=== PATIENT | female | born 2005 | race Caucasian/White ===

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

== ENCOUNTER 2023-02-26 09:51 | Outpatient (AMB) | payer OTHER, SELFPAY ==
--- NOTE | 2023-02-26 09:52 | A.OFFPC_ITS ---
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 Accompanied by: Self / Same As Patient Allergies Seasonal Allergies Allergy (Intermediate, Verified 02/26/23 10:07) Stuffy Nose Medication List - Last Reconciled 02/26/23 by Regina Gray CNP cholecalciferol (vitamin D3) 25 mcg PO DAILY 90 days drospirenone-ethinyl estradiol 3-0.03 mg (Kacey (28)) 1 tab PO DAILY hydroxyzine HCl 25 mg PO TID PRN 30 days Tobacco use date assessed: 09/18/22 Dental Screening Dental Screen Date: 02/26/23 Did you have a dental visit in the last 12 months?: Yes Did you have a dental problem in the last 6 months where you did not have access to dental care?: No Was dental information given to patient?: Patient has dentist HPI HPI Comments History of Present Illness Details 18 y/o female presents for anxiety and depression follow up. Hydroxyzine was started in December. She states she has been taking the medication once daily with significant improvement. She notes that she feels happier, however, she feels tired and sleeping on the medication. No acute symptoms today. [facility] Medical History Acne Depression Vitamin D deficiency Surgical History No pertinent past surgical history Family History Maternal Grandfather Bone cancer Lung cancer Maternal Grandmother Breast cancer Social History Household Members: Family Housing: House Housing Other:: multifamily Alcohol intake: never Patient Tobacco Use Status: Never used Tobacco e-Cigarette/Vaping Use: Never Used service: No Current occupational status: student Current occupational exposures/hazards: No Cognitive needs: No Hearing needs: No Vision needs: No Female Reproductive History Menstrual Age of Menarche: 15 Questionnaire PHQ-9 Over the last 2 weeks, how often have you been bothered by any of the following problems? 1. Little interest or pleasure in doing things: several days 2. Feeling down, depressed, or hopeless: not at all 3. Trouble falling or staying asleep, or sleeping too much: nearly every day 4. Feeling tired or having little energy: several days 5. Poor appetite or overeating: several days 6. Feeling bad about yourself - or that you are a failure or have let yourself or your family down: not at all 7. Trouble concentrating on things, such as reading the newspaper or watching television: nearly every day 8. Moving or speaking so slowly that other people could have noticed. Or the opposite - being so fidgety or restless that you have been moving around a lot more than usual: several days 9. Thoughts that you would be better off or of hurting yourself in some way: not at all Total score: 10 Depression Screening Interpretation: Positive Depression Screening Follow-up: Existing condition and In treatment 11675 - PHQ-9 Billing: Yes Source: Developed by Drs. Bravo White, Gloria Pringle, Panfilo Velásquez and colleagues, with an educational tony from [employer]. Thrive Questionnaire Date Thrive assessed: 09/18/22 LIZ-7 AMB Questionnaire LIZ-7 Date LIZ - 7 assessed: 02/26/23 Feeling nervous, anxious, or on edge: 3 = Nearly every day Not being able to stop or control worryin = Several days Worrying too much about different things: 3 = Nearly every day Trouble relaxin = Several days Being so restless that it is hard to sit still: 1 = Several days Becoming easily annoyed or irritable: 1 = Several days Feeling afraid as if something awful might happen: 2 = More than half the days Total LIZ-7 score (0-4 normal; 5-9 mild; 10-14 moderate; 15-21 severe): 12 Source: Developed by Drs. Bravo White, Gloria Pringle, Panfilo Velásquez and colleagues, with an educational tony from [employer]. LIZ-7 Assessment Billing LIZ-7 Assessment Tool: LIZ-7 Assessment 46349 Review of Systems Const Details: Const Denies chills, Denies fatigue, Denies fever(s), Denies headache(s) and Denies weakness ENT Denies dizziness and Denies headache(s) Card Denies chest pain, Denies lightheadedness, Denies dyspnea and Denies other (Palpitations) Resp Denies cough, Denies dyspnea, Denies wheezing and Denies other ( shortness of breath) GI Denies abdominal pain, Denies melena, Denies hematochezia, Denies change in bowel habits, Denies dyspepsia and Denies nausea Denies hematuria and Denies dysuria Musc Denies abnormal gait, Denies myalgias, Denies arthralgias, Denies numbness and Denies tingling Skin/Breast Denies rash, Denies unusual bruising and Denies wounds Neuro Denies abnormal gait, Denies dizziness, Denies headache(s), Denies memory loss, Denies numbness, Denies Sensory deficit (Neuro), Denies tingling and Denies weakness Psych Denies anxiety and Denies depression Endo Denies fatigue Aller/Immun Denies wheezing Physical exam (Primary Care) Vital Signs: Last Vital Signs Pulse 66 02/26/23 09:53 BP 110/64 02/26/23 09:53 Pulse Ox 99 02/26/23 09:53 BMI result Body Mass Index 17.6 Tobacco/Smoking Status: Tobacco use Status Tobacco use date assessed 09/18/22 02/26/23 10:00 Patient Tobacco Use Status Never used Tobacco 02/26/23 10:00 e-Cigarette/Vaping Use Never Used 02/26/23 10:00 PHQ-9: PHQ-9 Score PHQ-9: Total score 10 02/26/23 10:00 Depression Screening Interpretation: Positive Depression Screening Follow-up: Existing condition and In treatment Thrive Assessment: Date of Thrive Assessment Date Thrive assessed 09/18/22 02/26/23 10:00 Const Other: General: no acute distress and well developed Nutritional Appearance: well nourished Orientation/consciousness: patient oriented x3 HENMT Head: Yes normocephalic and Yes atraumatic Eyes General: appearance normal, both eyes and all related structures Pupils: Equal, round and reactive pupils present EOM: EOMs intact bilaterally Resp Effort & Inspection: normal respiratory effort Auscultation: clear to auscultation bilaterally Cardio Rate: regular rate Rhythm: regular rhythm Heart sounds: S1 normal heart sound present, S2 normal heart sound present, no gallops, no murmurs and no rubs GI Palpation (GI): No Abdominal aortic bruit present, Soft to palpation, nontender, No hepatosplenomegaly present and No Rebound tenderness present Auscultation: normal bowel sounds General: Yes no CVA tenderness Back/Spine/Pelvis Back: no CVA tenderness Cervical Spine: cervical ROM normal and No Cervical spine tenderness Thoracic/Lumbar Spine: thoraco-lumbar ROM normal, No pain with thoraco-lumbar ROM, No thoracic spinal tenderness and No lumbar spinal tenderness Extrem General: Yes normal to inspection, No edema and No calf tenderness Skin General: warm and dry. Normal skin color. Normal skin turgor Lesions: no lesions Rashes: no rashes Trauma: no lacerations or abrasions Wounds: no wounds Nails: normal Neuro General: patient oriented x3, gait normal and no focal neuro deficit Cranial nerves: Yes Equal, round and reactive pupils present Cognition (Neuro): normal cognition Gait exam (Neuro): Normal gait present Sensory Exam: No Sensory deficit (Neuro) Psych Appearance: grossly normal Affect: normal affect Attitude: cooperative Thought process: Normal thought process present Assessment and Plan Assessment & Plan (1) Anxiety: Code(s): F41.9 - Anxiety disorder, unspecified Plan: LIZ-7 an PHQ-9 scores revealed moderate anxiety and depression Sertraline ordered. Take as prescribed Informed that drowsiness is a common side effect of hydroxyzine; continue to take as needed for anxiety Routine exercise encouraged Follow-up in 1 month or return sooner with worsening or new symptoms Verbalized understanding and agreed with treatment plan. (2) Depression: Code(s): F32.A - Depression, unspecified Plan: As above Medications: New sertraline 25 mg PO DAILY 90 tabs 1RF 90 days Coding Level of Care Code Est Pt Level 3 (87985) Diagnoses Anxiety F41.9 Depression F32.A Additional Codes LIZ-7 Assessment Billing - LIZ-7 Assessment Tool: LIZ-7 Assessment 33136 ([id number]) Time Spent (min) 25
[2023-02-26 09:53] VITALS: BP 110/64; PULSE 66; O2SAT 99; BMI 17.6
== END 2023-02-26 10:22 | disposition home or self-care (01) ==
PROVIDERS: PCP Nurse Practitioner Family; Visit Provider Nurse Practitioner Family
DX: F41.9 Anxiety disorder, unspecified (principal); F32.A Depression, unspecified
CPT/HCPCS: 99213

== ENCOUNTER 2023-03-16 13:43 | Outpatient (AMB) | payer OTHER, SELFPAY ==
[2023-03-16 13:45] VITALS: BP 89/60; PULSE 70; TEMP 36.5; O2SAT 99; BMI 17.7
--- NOTE | 2023-03-16 13:45 | MHC.OFFWIV ---
Intake Vital Signs 03/16/23 13:45 Height 5 ft 6 in Weight 109 lb 6 oz BMI 17.7 BP 89/60 L Blood Pressure Location Lt brachial Position Sitting Pulse 70 Pulse Source Pulse Oximeter Temp 97.7 F Temp Source Temporal Artery Scan Pulse Oximetry (%) 99 Oxygen Delivery Method Room Air Intake Visit Reasons: EP, Back pain Intake Note: Pt is here c/o lower back pain that has been radiating upwards. Pt states no falls or injuries but she does play soccer. Patient Tobacco Use Status: Never used Tobacco Allergies Seasonal Allergies Allergy (Intermediate, Verified 03/16/23 13:46) Stuffy Nose Do you need a note to return to daycare/school/sports/work: No HPI EP, Back pain HPI Details 18 year old female patient presents today with lower back pain and spasms. 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 She denies any inciting event, fall, or injury to this pain. She reports playing in a summer soccer league without any pain/injury. She reports she can actually see and feel her back muscles spasming at times. The athletic trainers at her college have been applying heat/ice and electric stim. She has also been taking advil without relief. She reports some radiation of pain down buttocks. Denies leg weakness or numbness. Denies saddle anesthesia or bowel/bladder dysfunction. [facility] Medical History Acne Depression Vitamin D deficiency Surgical History No pertinent past surgical history Family History Maternal Grandfather Bone cancer Lung cancer Maternal Grandmother Breast cancer Social History Household Members: Family Housing: House Housing Other:: multifamily Alcohol intake: never Patient Tobacco Use Status: Never used Tobacco e-Cigarette/Vaping Use: Never Used service: No Current occupational status: student Current occupational exposures/hazards: No Cognitive needs: No Hearing needs: No Vision needs: No Female Reproductive History Menstrual Age of Menarche: 15 Review of Systems Const All systems reviewed & are unremarkable except as noted in HPI and below Physical Exam Vital Signs: Last Vital Signs Temp 97.7 F 03/16/23 13:45 Pulse 70 03/16/23 13:45 BP 89/60 L 03/16/23 13:45 Pulse Ox 99 03/16/23 13:45 Oxygen Delivery Method Room Air 03/16/23 13:45 BMI result Body Mass Index 17.7 Const General: cooperative, healthy appearing, comfortable and no acute distress Nutritional Appearance: average body habitus and well nourished Resp Effort & Inspection: normal respiratory effort and able to speak in complete sentences General: Yes no CVA tenderness Back/Spine/Pelvis Back: no CVA tenderness Cervical Spine: normal cervical lordosis and cervical ROM normal Thoracic/Lumbar Spine: paraspinal muscle tenderness bilaterally in the lower thoracic, in the upper lumbar, in the mid lumbar and in the lower lumbar, thoraco-lumbar spasm bilaterally in the lower thoracic, in the upper lumbar, in the mid lumbar and in the lower lumbar and straight leg raise positive bilateral at 50 degrees Skin General skin exam: no rashes or lesions noted Neuro General: gait normal, Normal light touch and pain sensation and deep tendon reflexes 2+ bilaterally Extrem General: Yes capillary refill normal and Yes no clubbing, cyanosis or edema Psych Appearance: grossly normal Mental Status: mental status grossly normal Speech and movement: Normal speech and movement present Assessment & Plan Assessment & Plan (1) Lower back pain: Code(s): M54.50 - Low back pain, unspecified Qualifiers: Chronicity: acute Back pain laterality: bilateral Sciatica presence: without sciatica Qualified Code(s): M54.50 - Low back pain, unspecified Plan: Her pain is likely muscular in nature. Her bilateral lower thoracic and lumbar paraspinal musculature bilaterally are very tender, with notable muscle spasms on exam. XR reviewed in the office does not reveal any acute findings. Will await official radiology read. She can continue to utilize electric stim with athletic trainers at her college, in addition to heat/ice application and gentle stretching/foam rolling regimen. She does not wish to try muscle relaxers. She is agreeable to trying short course of meloxicam to see if this provides any benefit. We reviewed indications, use, possible side effects. I advised she hold off returning to pre season soccer practice for the next couple of days, which she agrees to. if her pain it is/ spasms do not resolve with conservative measures, NSAIDs, and increased rest time, she should return to the clinic for further evaluation, or follow-up with PCP. She verbalizes understanding and agrees to plan. (2) Strain of lumbar paraspinous muscle: Code(s): S39.012A - Strain of muscle, fascia and tendon of lower back, initial encounter Qualifiers: Encounter type: initial encounter Qualified Code(s): S39.012A - Strain of muscle, fascia and tendon of lower back, initial encounter Orders: Orders XR lumbar spine 2-3V Today M54.50 - Low back pain, unspecified, S39.012A - Strain of muscle, fascia and tendon of lower back, initial encounter Medications: New meloxicam 7.5 mg PO DAILY 7 tabs 0RF 7 days M54.50 - Low back pain, unspecified, S39.012A - Strain of muscle, fascia and tendon of lower back, initial encounter Coding Level of Care Code Est Pt Level 3 (81837) Diagnoses Lower back pain M54.50 Chronicity: acute Back pain laterality: bilateral Sciatica presence: without sciatica Strain of lumbar paraspinous muscle S39.012A Encounter type: initial encounter
== END 2023-03-16 15:02 | disposition home or self-care (01) ==
PROVIDERS: PCP Nurse Practitioner Family; Visit Provider Nurse Practitioner Family
DX: M54.50 Low back pain, unspecified (principal); S39.012A Strain of muscle, fascia and tendon of lower back, initial encounter
CPT/HCPCS: 99213

== ENCOUNTER 2023-03-16 14:34 | Outpatient (REF) | payer OTHER, SELFPAY ==
--- NOTE | ~2023-03-16 | XR_ITS ---
EXAMINATION: XR LUMBOSACRAL SPINE CLINICAL INFORMATION: Low back pain. COMPARISON: None available. TECHNIQUE: Three views of the lumbosacral spine. FINDINGS: The vertebral bodies and posterior elements are normal. The disc spaces are preserved and the vertebral alignment is normal. The paraspinal soft tissues are normal. XR/XR lumbar spine 2-3V IMPRESSION: Unremarkable lumbar spine.
== END 2023-03-16 14:35 | disposition home or self-care (01) ==
LOC: HO.HMGCX 14:34
PROVIDERS: PCP Nurse Practitioner Family; Visit Provider Nurse Practitioner Family
DX: S39.012A Strain of muscle, fascia and tendon of lower back, initial encounter (principal)
CPT/HCPCS: 72100

== ENCOUNTER 2023-04-02 09:51 | Outpatient (AMB) | payer OTHER, SELFPAY ==
--- NOTE | 2023-04-02 10:04 | A.OFFPC_ITS ---
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 Accompanied by: Self / Same As Patient Allergies Seasonal Allergies Allergy (Intermediate, Verified 04/02/23 10:39) Stuffy Nose Medication List - Last Reconciled 04/02/23 by Regina Gray CNP cholecalciferol (vitamin D3) 25 mcg PO DAILY 90 days drospirenone-ethinyl estradiol 3-0.03 mg (Kacey (28)) 1 tab PO DAILY hydroxyzine HCl 25 mg PO TID PRN 30 days sertraline 25 mg PO DAILY 90 days Tobacco use date assessed: 09/18/22 Dental Screening Dental Screen Date: 04/02/23 Did you have a dental visit in the last 12 months?: Yes Did you have a dental problem in the last 6 months where you did not have access to dental care?: No Was dental information given to patient?: Patient has dentist HPI HPI Comments History of Present Illness Details 18-year-old female presents for anxiety and depression follow-up. She is currently on hydroxyzine and sertraline. Sertraline was started at her last visit last month. She notes she has been taking her medications as prescribed with controlled symptoms and she has not been feeling as tired lately. She notes she wish to stay on her current doses of medications. She notes she started behavioral therapy 2 weeks ago and has been go once a twice a week. She reports significant improvement with therapy. She is a college student. [facility] Medical History Vitamin D deficiency Depression Acne Surgical History No pertinent past surgical history Family History Maternal Grandfather Bone cancer Lung cancer Maternal Grandmother Breast cancer Social History Household Members: Family Housing: House Housing Other:: multifamily Alcohol intake: never Patient Tobacco Use Status: Never used Tobacco e-Cigarette/Vaping Use: Never Used service: No Current occupational status: student Current occupational exposures/hazards: No Cognitive needs: No Hearing needs: No Vision needs: No Female Reproductive History Menstrual Age of Menarche: 15 Questionnaire PHQ-9 Over the last 2 weeks, how often have you been bothered by any of the following problems? 1. Little interest or pleasure in doing things: several days 2. Feeling down, depressed, or hopeless: more than half the days 3. Trouble falling or staying asleep, or sleeping too much: more than half the days 4. Feeling tired or having little energy: several days 5. Poor appetite or overeating: not at all 6. Feeling bad about yourself - or that you are a failure or have let yourself or your family down: more than half the days 7. Trouble concentrating on things, such as reading the newspaper or watching television: more than half the days 8. Moving or speaking so slowly that other people could have noticed. Or the opposite - being so fidgety or restless that you have been moving around a lot more than usual: several days 9. Thoughts that you would be better off or of hurting yourself in some way: not at all Total score: 11 Depression Screening Interpretation: Positive Depression Screening Follow-up: Existing condition and In treatment Source: Developed by Drs. Bravo White, Gloria Pringle, Panfilo Velásquez and colleagues, with an educational tony from [employer]. Thrive Questionnaire Date Thrive assessed: 09/18/22 LIZ-7 AMB Questionnaire LIZ-7 Date LIZ - 7 assessed: 04/02/23 Feeling nervous, anxious, or on edge: 3 = Nearly every day Not being able to stop or control worryin = Nearly every day Worrying too much about different things: 3 = Nearly every day Trouble relaxin = More than half the days Being so restless that it is hard to sit still: 1 = Several days Becoming easily annoyed or irritable: 0 = Not at all Feeling afraid as if something awful might happen: 3 = Nearly every day Total LIZ-7 score (0-4 normal; 5-9 mild; 10-14 moderate; 15-21 severe): 15 Source: Developed by Drs. Bravo White, Gloria Pringle, Panfilo Velásquez and colleagues, with an educational tony from [employer]. Review of Systems Const Details: Const Denies chills, Denies fatigue, Denies fever(s), Denies headache(s) and Denies weakness ENT Denies dizziness and Denies headache(s) Card Denies chest pain, Denies lightheadedness, Denies dyspnea and Denies other (Palpitations) Resp Denies cough, Denies dyspnea, Denies wheezing and Denies other ( shortness of breath) GI Denies abdominal pain, Denies melena, Denies hematochezia, Denies change in bowel habits, Denies dyspepsia and Denies nausea Denies hematuria and Denies dysuria Musc Denies abnormal gait, Denies myalgias, Denies arthralgias, Denies numbness and Denies tingling Skin/Breast Denies rash, Denies unusual bruising and Denies wounds Neuro Denies abnormal gait, Denies dizziness, Denies headache(s), Denies memory loss, Denies numbness, Denies Sensory deficit (Neuro), Denies tingling and Denies weakness Psych Denies anxiety, Denies depression, Denies memory loss Endo Denies cold intolerance, Denies fatigue, Denies heat intolerance, Denies polydipsia and Denies polyuria Aller/Immun Denies wheezing Physical exam (Primary Care) Vital Signs: Last Vital Signs Temp 97.4 F 04/02/23 10:06 Pulse 73 04/02/23 10:06 Resp 12 04/02/23 10:06 BP 106/64 04/02/23 10:06 Pulse Ox 99 04/02/23 10:06 Oxygen Delivery Method Room Air 04/02/23 10:06 BMI result Body Mass Index 17.3 Tobacco/Smoking Status: Tobacco use Status Tobacco use date assessed 09/18/22 04/02/23 10:12 Patient Tobacco Use Status Never used Tobacco 04/02/23 10:12 e-Cigarette/Vaping Use Never Used 04/02/23 10:12 PHQ-9: PHQ-9 Score PHQ-9: Total score 11 04/02/23 10:12 Depression Screening Interpretation: Positive Depression Screening Follow-up: Existing condition and In treatment Thrive Assessment: Date of Thrive Assessment Date Thrive assessed 09/18/22 04/02/23 10:12 Const Other: General: no acute distress and well developed Nutritional Appearance: well nourished Orientation/consciousness: patient oriented x3 [facility] Head: Yes normocephalic and Yes atraumatic Eyes General: appearance normal, both eyes and all related structures Pupils: Equal, round and reactive pupils present EOM: EOMs intact bilaterally Resp Effort & Inspection: normal respiratory effort Auscultation: clear to auscultation bilaterally Cardio Rate: regular rate Rhythm: regular rhythm Heart sounds: S1 normal heart sound present, S2 normal heart sound present, no gallops, no murmurs and no rubs GI Palpation (GI): No Abdominal aortic bruit present, Soft to palpation, nontender, No hepatosplenomegaly present and No Rebound tenderness present Auscultation: normal bowel sounds General: Yes no CVA tenderness Back/Spine/Pelvis Back: no CVA tenderness Cervical Spine: cervical ROM normal and No Cervical spine tenderness Thoracic/Lumbar Spine: thoraco-lumbar ROM normal, No pain with thoraco-lumbar ROM, No thoracic spinal tenderness and No lumbar spinal tenderness Extrem General: Yes normal to inspection, No edema and No calf tenderness Skin General: warm and dry. Normal skin color. Normal skin turgor Lesions: no lesions Rashes: no rashes Trauma: no lacerations or abrasions Wounds: no wounds Nails: normal Neuro General: patient oriented x3, gait normal and no focal neuro deficit Cranial nerves: Yes Equal, round and reactive pupils present Cognition (Neuro): normal cognition Gait exam (Neuro): Normal gait present Sensory Exam: No Sensory deficit (Neuro) Psych Appearance: grossly normal Affect: normal affect Attitude: cooperative Thought process: Normal thought process present Assessment and Plan Assessment & Plan (1) Anxiety: Code(s): F41.9 - Anxiety disorder, unspecified Plan: LIZ-7 in PHQ-9 scores revealed severe anxiety and moderate depression respectively She reports significant improvement of her symptoms with current treatment regimen and notes she wished to stay on current treatment Continue to take sertraline and hydroxyzine as prescribed Routine exercise encouraged Follow-up with therapist as planned Return in 3 months or sooner with worsening or new symptoms Verbalized understanding and agreed with treatment plan. (2) Depression: Code(s): F32.A - Depression, unspecified Qualifiers: Depression Type: unspecified Qualified Code(s): F32.A - Depression, unspecified Plan: As above Coding Level of Care Code Est Pt Level 3 (25510) Diagnoses Anxiety F41.9 Depression, unspecified depression type F32.A Depression Type: unspecified
[2023-04-02 10:06] VITALS: BP 106/64; PULSE 73; RESP 12; TEMP 36.3; O2SAT 99; BMI 17.3
== END 2023-04-02 10:49 | disposition home or self-care (01) ==
PROVIDERS: PCP Nurse Practitioner Family; Visit Provider Nurse Practitioner Family
DX: F41.9 Anxiety disorder, unspecified (principal); F32.A Depression, unspecified
CPT/HCPCS: 99213

== ENCOUNTER → 2023-07-05 08:54 | Outpatient (AMB) | payer OTHER, SELFPAY ==
[2023-07-05 09:43] VITALS: BP 120/70; PULSE 86; TEMP 36.4; O2SAT 99; BMI 17.6
--- NOTE | 2023-07-05 09:43 | MHC.OFFWIV ---
Intake Vital Signs 07/05/23 09:43 Height 5 ft 6 in Intake Visit Reasons: EP UTI [id number] Intake Note: pt is here today for UTI started 2 days ago Patient Tobacco Use Status: Never used Tobacco Allergies Seasonal Allergies Allergy (Intermediate, Verified 07/05/23 09:44) Stuffy Nose Do you need a note to return to daycare/school/sports/work: Yes HPI HPI Comments History of Present Illness Details ??This is a 18-year-old female without significant medical history presenting to the clinic for evaluation of urinary frequency, urgency, dysuria which have been going on for the past two days worsening.? Patient reports she thinks she has urinary tract infection.? She denies fevers, chills, flank pain, nausea, vomiting, abdominal pain, chest pain, shortness of breath.? No concern for STDs or . ??Physical exam benign ?Likely UTI versus cystitis unlikely pyelonephritis, obstructing uropathy, systemic illness.? ?Plan at this time? patient be discharged with antibiotics.? Educated patient on diagnosis and treatment plan, answered all question, patient verbalizes understanding.? At this time patient will be discharged home, advised to return with new or worsening symptoms.? Educated on worrisome signs and symptoms and when to return.? At this time I feel comfortable discharge home. [facility] Medical History Vitamin D deficiency Depression Acne Surgical History No pertinent past surgical history Family History Maternal Grandfather Bone cancer Lung cancer Maternal Grandmother Breast cancer Social History Household Members: Family Housing: House Housing Other:: multifamily Alcohol intake: never Patient Tobacco Use Status: Never used Tobacco e-Cigarette/Vaping Use: Never Used service: No Current occupational status: student Current occupational exposures/hazards: No Cognitive needs: No Hearing needs: No Vision needs: No Female Reproductive History Menstrual Age of Menarche: 15 Review of Systems Const Details: Constitutional : No Weight loss, No Fever, No Chills, No Fatigue, No Malaise ENT/Mouth : No sore throat, No Rhinorrhea Eyes: No Eye Pain, No Swelling, No Redness Cardiovascular : No Chest Pain, No SOB, No Dyspnea on Exertion, No Orthopnea, No Edema, No Palpitations Respiratory : No Cough, No Sputum, No Wheezing Gastrointestinal : No Nausea, No Vomiting, No Diarrhea, No Constipation, No abdominal Pain, No Hematochezia, No Melena Genitourinary : + Dysuria, + Urinary Frequency, + Hematuria, Musculoskeletal : No joint pain, No Myalgias, No Joint Swelling Skin : No Skin Lesions, No rash Neuro : No Weakness, No Numbness, No Dizziness, No Headache Psych : No Anxiety/Panic, No Depression All other systems reviewed and are negative All systems reviewed & are unremarkable except as noted in HPI and below Physical Exam Vital Signs: vss Appearance: Alert.? Oriented X3.? No acute distress.? Head: Normocephalic, atraumatic, no step-offs or deformities Eyes: Pupils equal, round and reactive to light.? CVS: Normal heart rate and rhythm.? Pulses normal.? Respiratory: No respiratory distress.? Breath sounds normal.? Abdomen: Soft and nontender.? Skin: Skin warm and dry.? Normal skin color.? Normal skin turgor.? Extremities: No lower extremity edema.? No calf ttp. 5/5 strength to bilateral upper and lower extremities Back: No CVA tenderness bilaterally Neuro: Oriented X 3.? No motor deficit.? No sensory deficit. CN 2-12 intact Assessment & Plan Assessment & Plan (1) Urinary tract infection: Code(s): N39.0 - Urinary tract infection, site not specified Plan Take your medications as prescribed. If you were prescribed antibiotics today, it is important that you take your medication to their entirety, do not skip any doses, do not finish them early. Follow-up with your primary care provider this week. Return to the emergency department with new or worsening symptoms. Such as fevers, chills, chest pain, shortness of breath, nausea, vomiting, dizziness, headache, vision changes, lethargy In case of emergency call 911 Medications: New cefuroxime axetil 250 mg PO BID 7 days 14 tabs 0RF phenazopyridine (Pyridium) 200 mg PO TID 6 tabs 0RF 6 doses Coding Level of Care Code Est Pt Level 3 (57965) Diagnoses Urinary tract infection N39.0
--- NOTE | 2023-07-05 10:20 | AM.OFFWIN_ITS ---
Intake Vital Signs 07/05/23 09:43 Height 5 ft 6 in Weight 49.442 kg BMI 17.6 BP 120/70 Blood Pressure Location Lt brachial Position Sitting Pulse 86 Pulse Source Pulse Oximeter Temp 97.5 F Temp Source Temporal Artery Scan Pulse Oximetry (%) 99 Oxygen Delivery Method Room Air Intake Visit Reasons: EP UTI [id number] Patient Tobacco Use Status: Never used Tobacco Allergies Seasonal Allergies Allergy (Intermediate, Verified 08/06/23 11:29) Stuffy Nose HPI HPI Comments History of Present Illness Details UTI SX PFSH Medical History Vitamin D deficiency Depression Acne Surgical History No pertinent past surgical history Family History Maternal Grandfather Bone cancer Lung cancer Maternal Grandmother Breast cancer Social History Household Members: Family Housing: House Housing Other:: multifamily Alcohol intake: never Patient Tobacco Use Status: Never used Tobacco e-Cigarette/Vaping Use: Never Used service: No Current occupational status: student Current occupational exposures/hazards: No Cognitive needs: No Hearing needs: No Vision needs: No Female Reproductive History Menstrual Age of Menarche: 15 Review of Systems Const All systems reviewed & are unremarkable except as noted in HPI and below Physical Exam Vital Signs: Last Vital Signs Temp 97.5 F 07/05/23 09:43 Pulse 86 07/05/23 09:43 BP 120/70 07/05/23 09:43 Pulse Ox 99 07/05/23 09:43 Oxygen Delivery Method Room Air 07/05/23 09:43 BMI result Body Mass Index 17.6 vss Appearance: Alert.? Oriented X3.? No acute distress.? Head: Normocephalic, atraumatic, no step-offs or deformities Eyes: Pupils equal, round and reactive to light.? Neck: Normal inspection.? .? CVS:Pulses normal.? Respiratory: No respiratory distress.? Abdomen: Soft and nontender.? Skin: Skin warm and dry.? Normal skin color.? Normal skin turgor.? Neuro: Oriented X 3. Results AMB Urinalysis, Automated UA Leukoctes 15 Denae/uL Last Edit by Rolando Haney CMA on 07/05/23 09:58 UA Nitrite Positive Last Edit by Rolando Haney CMA on 07/05/23 09:58 UA Urobilinogen 0.2 mg/dL Last Edit by Rolando Haney CMA on 07/05/23 09 :58 UA Protein 0 mg/dL Last Edit by Rolando Haney CMA on 07/05/23 09:58 UA pH 6.0 Last Edit by Rolando Haney CMA on 07/05/23 09:58 UA Blood 0 Kelechi/uL Last Edit by Rolando Haney CMA on 07/05/23 09:58 UA Specific Beatty 1.020 Last Edit by Rolando Haney CMA on 07/05/23 09:58 UA Ketone Negative Last Edit by Rolando Haney CMA on 07/05/23 09:58 UA Bilirubin 1 mg/dL Last Edit by Rolando Haney CMA on 07/05/23 09:58 UA Glucose 0 mg/dL Last Edit by Rolando Haney CMA on 07/05/23 09:58 Results Reviewed Results Reviewed: Laboratory Last Values Urine pH (Auto) 6.0 07/05/23 09:58 Specific Beatty (Auto) 1.020 07/05/23 09:58 Urine Protein (Auto) 0 mg/dL 07/05/23 09:58 Glucose (UA)(Auto) 0 mg/dL 07/05/23 09:58 Urine Ketones (Auto) Negative 07/05/23 09:58 Urine Blood (Auto) 0 Kelechi/uL 07/05/23 09:58 Urine Nitrite (Auto) Positive 07/05/23 09:58 Urine Bilirubin (Auto) 1 mg/dL 07/05/23 09:58 Urine Urobilinogen (Auto) 0.2 mg/dL 07/05/23 09:58 Leukocyte Esterase (Auto) 15 Denae/uL 07/05/23 09:58 Assessment & Plan Assessment & Plan (1) Urinary tract infection: Code(s): N39.0 - Urinary tract infection, site not specified Plan Take your medications as prescribed. If you were prescribed antibiotics today, it is important that you take your medication to their entirety, do not skip any doses, do not finish them early. Follow-up with your primary care provider this week. Return to the emergency department with new or worsening symptoms. Such as fevers, chills, chest pain, shortness of breath, nausea, vomiting, dizziness, headache, vision changes, lethargy In case of emergency call 911 Orders: Orders AMB Urinalysis Automated 07/05/23 Z13.9 - Encounter for screening, unspecified Medications: New cefuroxime axetil 250 mg PO BID 14 tabs 0RF 7 days phenazopyridine (Pyridium) 200 mg PO TID 6 tabs 0RF 6 doses Coding Level of Care Code Est Pt Level 3 (23431) Diagnoses Urinary tract infection N39.0
== END ==
PROVIDERS: PCP Nurse Practitioner Family; Visit Provider Physician Assistant
DX: N39.0 Urinary tract infection, site not specified (principal); R30.0 Dysuria
CPT/HCPCS: 81003; 99213

== ENCOUNTER 2023-08-06 11:06 | Outpatient (AMB) | payer OTHER, SELFPAY ==
[2023-08-06 11:07] VITALS: BP 102/70; PULSE 72; O2SAT 99; BMI 17.4
--- NOTE | 2023-08-06 11:07 | A.OFFPC_ITS ---
Vital Signs 08/06/23 11:07 Height 5 ft 6 in Weight 108 lb 0.2 oz BMI 17.4 BP 102/70 Blood Pressure Location Lt brachial Position Standing Pulse 72 Pulse Source Pulse Oximeter Pulse Oximetry (%) 99 Oxygen Delivery Method Room Air Intake Visit Reasons: 3 mos anxiety, depression Heel Wheeler Required: No Allergies Seasonal Allergies Allergy (Intermediate, Verified 08/06/23 11:29) Stuffy Nose Medication List - Last Reconciled 08/06/23 by Regina Gray CNP cholecalciferol (vitamin D3) 25 mcg PO DAILY 90 days drospirenone-ethinyl estradiol 3-0.03 mg (Kacey (28)) 1 tab PO DAILY hydroxyzine HCl 25 mg PO TID PRN 30 days phenazopyridine (Pyridium) 200 mg PO TID 6 doses sertraline 25 mg PO DAILY 90 days Tobacco use date assessed: 08/06/23 Dental Screening Dental Screen Date: 08/06/23 Did you have a dental visit in the last 12 months?: Yes Did you have a dental problem in the last 6 months where you did not have access to dental care?: No Was dental information given to patient?: Patient has dentist HPI HPI Comments History of Present Illness Details 18-year-old female presents for anxiety and depression follow-up She reports controlled anxiety and depression symptoms She is on hydroxyzine and sertraline which she admits to taking as prescribed without adverse reactions She admits to making healthy dietary choices and exercising routinely She offers no complaints and denies acute symptoms at this time [facility] Medical History Vitamin D deficiency Depression Acne Surgical History No pertinent past surgical history Family History Maternal Grandfather Bone cancer Lung cancer Maternal Grandmother Breast cancer Social History Household Members: Family Housing: House Housing Other:: multifamily Alcohol intake: never Patient Tobacco Use Status: Never used Tobacco e-Cigarette/Vaping Use: Never Used service: No Current occupational status: student Current occupational exposures/hazards: No Cognitive needs: No Hearing needs: No Vision needs: No Female Reproductive History Menstrual Age of Menarche: 15 Questionnaire PHQ-9 Over the last 2 weeks, how often have you been bothered by any of the following problems? 1. Little interest or pleasure in doing things: several days 2. Feeling down, depressed, or hopeless: several days 3. Trouble falling or staying asleep, or sleeping too much: more than half the days 4. Feeling tired or having little energy: several days 5. Poor appetite or overeating: not at all 6. Feeling bad about yourself - or that you are a failure or have let yourself or your family down: not at all 7. Trouble concentrating on things, such as reading the newspaper or watching television: nearly every day 8. Moving or speaking so slowly that other people could have noticed. Or the opposite - being so fidgety or restless that you have been moving around a lot more than usual: not at all 9. Thoughts that you would be better off or of hurting yourself in some way: not at all Total score: 8 Depression Screening Interpretation: Positive Depression Screening Follow-up: Existing condition and In treatment Depression Screening Done: Yes Source: Developed by Drs. Bravo White, Gloria Pringle, Panfilo Velásquez and colleagues, with an educational tony from [employer]. Thrive Questionnaire Date Thrive assessed: 08/06/23 AUDIT C Alcohol Use Questionnaire (AUDIT-C) 1. How often do you have a drink containing alcohol?: Never 3. How often do you have six or more drinks on one occasion?: Never Total Score: 0 LIZ-7 AMB Questionnaire LIZ-7 Date LIZ - 7 assessed: 08/06/23 Feeling nervous, anxious, or on edge: 1 = Several days Not being able to stop or control worryin = More than half the days Worrying too much about different things: 2 = More than half the days Trouble relaxin = Several days Being so restless that it is hard to sit still: 0 = Not at all Becoming easily annoyed or irritable: 0 = Not at all Feeling afraid as if something awful might happen: 0 = Not at all Total LIZ-7 score (0-4 normal; 5-9 mild; 10-14 moderate; 15-21 severe): 6 Source: Developed by Drs. Bravo White, Gloria Pringle, Panfilo Velásquez and colleagues, with an educational tony from [employer]. Review of Systems Const Details: Const Denies chills, Denies fatigue, Denies fever(s), Denies headache(s) and Denies weakness ENT Denies dizziness and Denies headache(s) Card Denies chest pain, Denies lightheadedness, Denies dyspnea and Denies other (Palpitations) Resp Denies cough, Denies dyspnea, Denies wheezing and Denies other ( shortness of breath) GI Denies abdominal pain, Denies melena, Denies hematochezia, Denies change in bowel habits, Denies dyspepsia and Denies nausea Denies hematuria and Denies dysuria Musc Denies abnormal gait, Denies myalgias, Denies arthralgias, Denies numbness and Denies tingling Skin/Breast Denies rash, Denies unusual bruising and Denies wounds Neuro Denies abnormal gait, Denies dizziness, Denies headache(s), Denies memory loss, Denies numbness, Denies Sensory deficit (Neuro), Denies tingling and Denies weakness Psych Denies anxiety, Denies depression, Denies memory loss Endo Denies cold intolerance, Denies fatigue, Denies heat intolerance, Denies polydipsia and Denies polyuria Aller/Immun Denies wheezing Physical exam (Primary Care) Vital Signs: Last Vital Signs Pulse 72 08/06/23 11:07 BP 102/70 08/06/23 11:07 Pulse Ox 99 08/06/23 11:07 Oxygen Delivery Method Room Air 08/06/23 11:07 BMI result Body Mass Index 17.4 Tobacco/Smoking Status: Tobacco use Status Tobacco use date assessed 08/06/23 08/06/23 11:10 Patient Tobacco Use Status Never used Tobacco 08/06/23 11:10 e-Cigarette/Vaping Use Never Used 08/06/23 11:10 PHQ-9: PHQ-9 Score PHQ-9: Total score 8 08/06/23 11:16 Depression Screening Interpretation: Positive Depression Screening Follow-up: Existing condition and In treatment Thrive Assessment: Date of Thrive Assessment Date Thrive assessed 08/06/23 08/06/23 11:10 Const Other: General: no acute distress and well developed Nutritional Appearance: well nourished Orientation/consciousness: patient oriented x3 HENMT Head: Yes normocephalic and Yes atraumatic Eyes General: appearance normal, both eyes and all related structures Pupils: Equal, round and reactive pupils present EOM: EOMs intact bilaterally Resp Effort & Inspection: normal respiratory effort Auscultation: clear to auscultation bilaterally Cardio Rate: regular rate Rhythm: regular rhythm Heart sounds: S1 normal heart sound present, S2 normal heart sound present, no gallops, no murmurs and no rubs GI Palpation (GI): No Abdominal aortic bruit present, Soft to palpation, nontender, No hepatosplenomegaly present and No Rebound tenderness present Auscultation: normal bowel sounds General: Yes no CVA tenderness Back/Spine/Pelvis Back: no CVA tenderness Cervical Spine: cervical ROM normal and No Cervical spine tenderness Thoracic/Lumbar Spine: thoraco-lumbar ROM normal, No pain with thoraco-lumbar ROM, No thoracic spinal tenderness and No lumbar spinal tenderness Extrem General: Yes normal to inspection, No edema and No calf tenderness Skin General: warm and dry. Normal skin color. Normal skin turgor Lesions: no lesions Rashes: no rashes Trauma: no lacerations or abrasions Wounds: no wounds Nails: normal Neuro General: patient oriented x3, gait normal and no focal neuro deficit Cranial nerves: Yes Equal, round and reactive pupils present Cognition (Neuro): normal cognition Gait exam (Neuro): Normal gait present Sensory Exam: No Sensory deficit (Neuro) Psych Appearance: grossly normal Affect: normal affect Attitude: cooperative Thought process: Normal thought process present Assessment and Plan Assessment & Plan (1) Anxiety: Code(s): F41.9 - Anxiety disorder, unspecified Plan: Reports controlled anxiety and depression on current treatment regimen PHQ-9 and LIZ-7 scores revealed mild depression and anxiety Continue current treatment regimen Healthy diet and routine exercise encouraged Follow-up in 1-2 months for an extended physical exam Advised to get routine blood work done before her next visit Return sooner with symptoms or concerns Verbalized understanding and agreed with treatment plan (2) Depression: Code(s): F32.A - Depression, unspecified Qualifiers: Depression Type: unspecified Qualified Code(s): F32.A - Depression, unspecified (3) Laboratory tests ordered as part of a complete physical exam (CPE): Code(s): Z00.00 - Encounter for general adult medical examination without abnormal findings Plan: Fasting labs ordered as part of a complete physical exam. Advised to fast for at least 10 hours before getting labs drawn. May drink water Verbalized understanding and agreed with treatment plan. Orders: Orders Complete Blood Count Auto Diff Today Z00.00 - Encounter for general adult medical examination without abnormal findings Comprehensive [place]. Panel Fast Today Z00.00 - Encounter for general adult medical examination without abnormal findings TSH reflex Free T4 Today Z00.00 - Encounter for general adult medical examination without abnormal findings UA CC w/rflx Micro + Cult Today Z00.00 - Encounter for general adult medical examination without abnormal findings Lipid Panel Today Z00.00 - Encounter for general adult medical examination without abnormal findings Coding Level of Care Code Est Pt Level 3 (56481) Diagnoses Anxiety F41.9 Depression, unspecified depression type F32.A Depression Type: unspecified Laboratory tests ordered as part of a complete physical exam (CPE) Z00.00
== END 2023-08-06 11:38 | disposition home or self-care (01) ==
PROVIDERS: PCP Nurse Practitioner Family; Visit Provider Nurse Practitioner Family
DX: F41.9 Anxiety disorder, unspecified (principal); F32.A Depression, unspecified; Z00.00 Encounter for general adult medical examination without abnormal findings
CPT/HCPCS: 99213

== ENCOUNTER 2023-10-25 13:03 | Outpatient (AMB) | payer OTHER, SELFPAY ==
[2023-10-25 13:04] VITALS: BP 106/64; PULSE 82; RESP 13; TEMP 36.5; O2SAT 99; BMI 17.3
--- NOTE | 2023-10-25 13:04 | MHC.PC.OV ---
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 Accompanied by: Self / Same As Patient Allergies Seasonal Allergies Allergy (Intermediate, Verified 10/25/23 13:14) Stuffy Nose Medication List - Last Reconciled 10/25/23 by Regina Gray CNP cholecalciferol (vitamin D3) 25 mcg PO DAILY 90 days drospirenone-ethinyl estradiol 3-0.03 mg (Kacey (28)) 1 tab PO DAILY hydroxyzine HCl 25 mg PO TID PRN 90 days phenazopyridine (Pyridium) 200 mg PO TID 6 doses sertraline 25 mg PO DAILY 90 days Tobacco use date assessed: 10/25/23 Dental Screening Dental Screen Date: 10/25/23 Did you have a dental visit in the last 12 months?: Yes Did you have a dental problem in the last 6 months where you did not have access to dental care?: No Was dental information given to patient?: Patient has dentist HPI HPI Comments History of Present Illness Details 18-year-old female presents for an extended physical exam She admits to taking her medications as prescribed without adverse reactions She reports controlled anxiety and depression symptoms She notes that she has been exercising routinely and making healthy dietary choices She offers no complaints and denies acute symptoms at this time She did not get her fasting blood work done She notes that she is scheduled to have her first pap smear test later this month She notes that she is sexually active, in a monogamous relationship, and has no concerns for STD She notes that she has not been vaccinated for the flu and does not want the vaccine [facility] Medical History Vitamin D deficiency Depression Acne Surgical History (Updated 10/25/23 @ 13:10 by ROSA Bourne) H/O wisdom tooth extraction No pertinent past surgical history Family History Maternal Grandfather Bone cancer Lung cancer Maternal Grandmother Breast cancer Other Mental health disorder Social History Household Members: Family Housing: House Housing Other:: multifamily Alcohol intake: never Patient Tobacco Use Status: Never used Tobacco e-Cigarette/Vaping Use: Never Used service: No Current occupational status: student Current occupational exposures/hazards: No Cognitive needs: No Hearing needs: No Vision needs: No Female Reproductive History Menstrual Age of Menarche: 15 Questionnaire PHQ-9 Over the last 2 weeks, how often have you been bothered by any of the following problems? 1. Little interest or pleasure in doing things: several days 2. Feeling down, depressed, or hopeless: not at all 3. Trouble falling or staying asleep, or sleeping too much: more than half the days 4. Feeling tired or having little energy: several days 5. Poor appetite or overeating: not at all 6. Feeling bad about yourself - or that you are a failure or have let yourself or your family down: not at all 7. Trouble concentrating on things, such as reading the newspaper or watching television: more than half the days 8. Moving or speaking so slowly that other people could have noticed. Or the opposite - being so fidgety or restless that you have been moving around a lot more than usual: several days 9. Thoughts that you would be better off or of hurting yourself in some way: not at all Total score: 7 Depression Screening Interpretation: Positive Depression Screening Follow-up: Existing condition and In treatment Depression Screening Done: Yes 82777 - PHQ-9 Billing: Yes Source: Developed by Drs. Bravo White, Gloria Pringle, Panfilo Velásquez and colleagues, with an educational tony from [employer]. Thrive Questionnaire Date Thrive assessed: 10/25/23 I am a: Patient What is your living situation today?: I have a steady place to live Within the past 12 months, did the food you bought not last and you didn't have the money to get more?: Never true Within the past 12 months, did you worry whether your food would run out before you got money to buy more?: Never true Do you have trouble paying for medicines?: No Do you have trouble getting transportation to medical appointments?: No Do you have trouble paying your heating and electricity bill?: No Do you have trouble taking care of your child, family member or friend?: No Do you have trouble with day-to-day activities such as bathing, preparing meals, shopping, managing finances, etc.?: No Are you currently unemployed and looking for a job?: No Are you interested in more education?: No Please select the resources that you would like help with: None Currently or been in a relationship where the following occur: no concerns reported THRIVE Score: 0 AUDIT C Alcohol Use Questionnaire (AUDIT-C) 1. How often do you have a drink containing alcohol?: Never 3. How often do you have six or more drinks on one occasion?: Never Total Score: 0 LIZ-7 AMB Questionnaire LIZ-7 Date LIZ - 7 assessed: 10/25/23 Feeling nervous, anxious, or on edge: 2 = More than half the days Not being able to stop or control worryin = More than half the days Worrying too much about different things: 2 = More than half the days Trouble relaxin = More than half the days Being so restless that it is hard to sit still: 1 = Several days Becoming easily annoyed or irritable: 0 = Not at all Feeling afraid as if something awful might happen: 2 = More than half the days Total LIZ-7 score (0-4 normal; 5-9 mild; 10-14 moderate; 15-21 severe): 11 Source: Developed by Drs. Bravo White, Gloria Pringle, Panfilo Velásquez and colleagues, with an educational tony from [employer]. Review of Systems Const Details: Denies chills, Denies fatigue, Denies fever(s), Denies headache(s) and Denies weakness HEENT Denies change in vision, Denies dizziness, Denies headache(s), Denies hearing loss, Denies nasal congestion, Denies sinus pain, Denies sinus pressure and Denies sore throat Card Denies chest pain, Denies lightheadedness, Denies dyspnea and Denies other (palpitations) Resp Denies cough, Denies dyspnea and Denies wheezing GI Denies abdominal pain, Denies melena, Denies hematochezia, Denies change in bowel habits, Denies dyspepsia and Denies nausea Denies hematuria and Denies dysuria Musc Denies abnormal gait, Denies myalgias, Denies arthralgias, Denies numbness and Denies tingling Skin/Breast Denies rash, Denies unusual bruising and Denies wounds Neuro Denies abnormal gait, Denies dizziness, Denies headache(s), Denies memory loss, Denies numbness, Denies Sensory deficit (Neuro), Denies tingling and Denies weakness Psych Denies anxiety, Denies depression and Denies memory loss Endo Denies cold intolerance, Denies fatigue, Denies heat intolerance, Denies polydipsia and Denies polyuria Jonnathan/Lymph Denies easy bleeding and Denies easy bruising Aller/Immun Denies wheezing Physical exam (Primary Care) Vital Signs: Last Vital Signs Temp 97.7 F 10/25/23 13:04 Pulse 82 10/25/23 13:04 Resp 13 10/25/23 13:04 BP 106/64 10/25/23 13:04 Pulse Ox 99 10/25/23 13:04 Oxygen Delivery Method Room Air 10/25/23 13:04 BMI result Body Mass Index 17.3 Tobacco/Smoking Status: Tobacco use Status Tobacco use date assessed 08/06/23 08/06/23 11:10 Patient Tobacco Use Status Never used Tobacco 08/06/23 11:10 e-Cigarette/Vaping Use Never Used 08/06/23 11:10 Depression Screening Interpretation: Positive Depression Screening Follow-up: Existing condition and In treatment Thrive Assessment: Date of Thrive Assessment Date Thrive assessed 08/06/23 08/06/23 11:10 Currently or been in a relationship where the following occur: no concerns reported Const Other: General: no acute distress, well developed, alert and awake Nutritional Appearance: well nourished Orientation/consciousness: patient oriented x3 HENMT Head: Yes normocephalic and Yes atraumatic Ears: hearing grossly normal bilaterally and TM's normal bilaterally General nose exam: Normal external nose present and Normal nares present Mouth: Normal oral and palatal mucosa present and moist mucous membranes Teeth and gingiva: dentition normal Throat: Yes oropharynx normal Eyes Pupils: Equal, round and reactive pupils present and Pupil accommodation reflex normal EOM: EOMs intact bilaterally Neck Neck: Yes normal visual inspection, Yes no lymphadenopathy and Yes trachea midline Thyroid: Thyroid normal Carotids: no bruits Lymphatic: no lymphadenopathy noted Chest Chest palpation & inspection: normal inspection of the chest Resp Effort & Inspection: normal respiratory effort Auscultation: clear to auscultation bilaterally Cardio Rate: regular rate Rhythm: regular rhythm Heart sounds: S1 normal heart sound present, S2 normal heart sound present, no gallops, no murmurs and no rubs Bruits: no abdominal aortic bruits and no carotid bruits GI Palpation (GI): No Abdominal aortic bruit present, Soft to palpation, nontender, No hepatosplenomegaly present and No Rebound tenderness present Auscultation: normal bowel sounds General: Yes no CVA tenderness Back/Spine/Pelvis Back: no CVA tenderness Cervical Spine: cervical ROM normal and No Cervical spine tenderness Thoracic/Lumbar Spine: thoraco-lumbar ROM normal, No pain with thoraco-lumbar ROM, No thoracic spinal tenderness and No lumbar spinal tenderness Skin General: warm and dry. Normal skin color. Normal skin turgor Lesions: no lesions Rashes: no rashes Trauma: no lacerations or abrasions Wounds: no wounds Nails: normal Neuro General: patient oriented x3, gait normal and CN's II-XI intact bilaterally Cranial nerves: Yes Equal, round and reactive pupils present Cognition (Neuro): normal cognition Gait exam (Neuro): Normal gait present Motor exam (neuro): 5/5 motor strength present throughout Sensory Exam: No Sensory deficit (Neuro) Deep tendon reflexes (DTR's): Right patellar reflex intensity grade: 2+ and Left patellar reflex intensity grade: 2+ Extrem General: Yes normal to inspection, No edema and No calf tenderness Psych Appearance: grossly normal Affect: normal affect Attitude: cooperative Thought process: Normal thought process present Assessment and Plan Assessment & Plan (1) Physical exam, annual: Code(s): Z00.00 - Encounter for general adult medical examination without abnormal findings Plan: No significant physical restrictions limitations noted Continue current treatment regimen Healthy diet and routine exercise encouraged Advised to get fasting blood work done before next visit Follow-up in 3 months or return sooner with symptoms or concerns Verbalized understanding and agreed with treatment plan (2) Anxiety: Code(s): F41.9 - Anxiety disorder, unspecified Plan: Reports controlled anxiety and depression symptoms on current treatment regimen PHQ-9 and LIZ-7 scores revealed mild depression and moderate anxiety respectively Continue current treatment Routine exercise encouraged Follow-up in 3 months or return sooner with symptoms or concerns Verbalized understanding and agreed with treatment plan (3) Depression: Code(s): F32.A - Depression, unspecified Qualifiers: Depression Type: unspecified Qualified Code(s): F32.A - Depression, unspecified Plan: As above (4) Vaccine counseling: Code(s): Z71.85 - Encounter for immunization safety counseling Plan: She has not been vaccinated for the flu Declines flu vaccine Instructed on the importance of vaccination and encouraged to get vaccinated for the flu Orders: Orders Vitamin D 25-OH Total Today E55.9 - Vitamin D deficiency, unspecified Medications: Discontinued phenazopyridine (Pyridium) Discontinued Reason: Patient no longer taking 200 mg PO TID 6 tabs 0RF 6 doses Coding Level of Care Code Est Pt Prev Care 18-39y(88917) Diagnoses Physical exam, annual Z00.00 Anxiety F41.9 Depression, unspecified depression type F32.A Depression Type: unspecified Vaccine counseling Z71.85
== END 2023-10-25 13:33 | disposition home or self-care (01) ==
PROVIDERS: Visit Provider Nurse Practitioner Family
DX: Z00.00 Encounter for general adult medical examination without abnormal findings (principal); F41.9 Anxiety disorder, unspecified; F32.A Depression, unspecified; Z71.85 Encounter for immunization safety counseling
CPT/HCPCS: 99395

== ENCOUNTER 2023-10-26 09:13 | Outpatient (REF) | payer OTHER, SELFPAY ==
[2023-10-26 12:46] LABS: MANUAL DIFF FLAG NO
[2023-10-26 12:52] LABS: Basophils Percent Auto 0.4 % (0-2); Eosinophils Absolute Auto 0.4 X10*3/uL (0.0-0.4); Eosinophils Percent Auto 4.1 % (0-4); Hematocrit 38.4 % (37.0-47.0); Hemoglobin 13.2 g/dl (12.0-16.0); Imm Gran Abs Auto 0.03 X10*3/uL (0.00-0.03); Imm Gran Pct Auto 0.3 % (0.0-0.4); Lymphocytes Absolute Auto 2.6 X10*3/uL (1.2-4.9); Lymphocytes Percent Auto 28.7 % (20-40); Mean Corpuscular HGB Conc 34.4 g/dl (31.0-35.0); Mean Corpuscular Hemoglobin 28.8 pg (27.0-33.0); Mean Corpuscular Volume 83.8 fL (80.0-98.0); Mean Platelet Volume 8.5 fL (9.4-12.3); Monocytes Absolute Auto 0.6 X10*3/uL (0.1-1.2); Monocytes Percent Auto 6.4 % (2-11); Neutrophils Absolute Auto 5.4 x10*3/uL (2.0-8.3); Neutrophils Percent Auto 60.1 % (45-73); Platelet Count 389 X10*3/uL (160-400); Red Blood Count 4.58 X10*6/uL (4.20-5.50); Red Cell Distribution Width 11.7 % (11.0-16.0)
[2023-10-26 13:19] LABS: Appearance Urine Clear; Color Urine Yellow; Glucose Urine UA Negative (Negative); Leukocyte Esterase Urine Trace (Negative); Nitrite Urine Negative (Negative); PH 6.5 (5.0-9.0); UMIC TRIGGER UACC YES; Urine Blood Negative (Negative); Urine Ketones Negative (Negative); Urine Protein Trace mg/dL (Neg-Trace)
[2023-10-26 13:21] LABS: Alanine Aminotransferase 11 U/L (0-31); Albumin Level 4.1 g/dL (3.5-5.0); Alkaline Phosphatase 73 U/L (39-117); Anion Gap 12 (12-20); Aspartate Amino Transferase 18 U/L (5-31); Bilirubin Total 0.5 mg/dL (0.0-1.0); Blood Urea Nitrogen 10 mg/dL (9-16); Calcium 9.4 mg/dL (8.4-10.2); Carbon Dioxide 23 mmol/L (22-29); Chloride 104 mmol/L (96-108); Cholesterol 159 mg/dL (<200); Estimated Glomerular Filt Rate > 60; Glucose Fasting 87 mg/dL (60-99); HDL Cholesterol 68 mg/dL (>40); LDL Cholesterol Calculated 65 mg/dL (<100); Potassium 3.7 mmol/L (3.3-5.1); Sodium 135 mmol/L (135-145); Total Protein 7.4 g/dL (6.5-8.0); Triglycerides 131 mg/dL (<150)
[2023-10-26 13:25] LABS: Bacteria Urine Trace (None Seen); Hyaline Casts Urine 0-2 /LPF (0-2); RBC Urine 0-2 /HPF (0-2); WBC Urine 0-5 /HPF (0-5)
[2023-10-26 13:38] LABS: TSH reflex Free T4 1.84 uIU/mL (0.32-4.0); Vitamin D 25-OH Total 51.6 ng/mL (>30)
== END 2023-10-26 09:14 | disposition home or self-care (01) ==
LOC: HO.HMGCLDS 09:13
PROVIDERS: PCP Nurse Practitioner Family; Visit Provider Nurse Practitioner Family
DX: Z00.00 Encounter for general adult medical examination without abnormal findings (principal); Z13.6 Encounter for screening for cardiovascular disorders; E55.9 Vitamin D deficiency, unspecified
CPT/HCPCS: 36415; 80053; 80061; 81001; 81003; 82306; 84443; 85025

== ENCOUNTER 2023-11-26 10:44 | Outpatient (AMB) | payer OTHER, SELFPAY ==
[2023-11-26 10:48] VITALS: BP 118/66; PULSE 87; TEMP 36.9; O2SAT 99; BMI 17.6
--- NOTE | 2023-11-26 10:48 | MHC.OFFWIV ---
Intake Vital Signs 11/26/23 10:48 Height 5 ft 6 in Weight 109 lb BMI 17.6 BP 118/66 Blood Pressure Location Rt brachial Position Sitting Pulse 87 Pulse Source Pulse Oximeter Temp 98.5 F Temp Source Oral Pulse Oximetry (%) 99 Oxygen Delivery Method Room Air Intake Visit Reasons: EP ?Spider bite Intake Note: Pt presents to the office today for left ear swelling/pain that started 3 days ago. Patient Tobacco Use Status: Never used Tobacco Allergies Seasonal Allergies Allergy (Intermediate, Verified 11/26/23 10:50) Stuffy Nose HPI EP ?Spider bite HPI Details 18 year old female patient presents today with a 1 week history of worsening external left ear pain, redness, and itching. Patient reports the back of her ear started itching about 1 week ago, and she has slowly developed redness and pain of her external ear. She is unsure if this started as an insect bite. Denies any fever/chills. She tried PO benadryl, and topical antihistamine and apple cider vinegar without benefit. She feels redness, warmth, swelling of ear is worsening. [facility] Medical History Vitamin D deficiency Depression Acne Surgical History H/O wisdom tooth extraction No pertinent past surgical history Family History Maternal Grandfather Bone cancer Lung cancer Maternal Grandmother Breast cancer Other Mental health disorder Social History Household Members: Family Housing: House Housing Other:: multifamily Alcohol intake: never Patient Tobacco Use Status: Never used Tobacco e-Cigarette/Vaping Use: Never Used service: No Current occupational status: student Current occupational exposures/hazards: No Cognitive needs: No Hearing needs: No Vision needs: No Female Reproductive History Menstrual Age of Menarche: 15 Review of Systems Const All systems reviewed & are unremarkable except as noted in HPI and below Physical Exam Vital Signs: Last Vital Signs Temp 98.5 F 11/26/23 10:48 Pulse 87 11/26/23 10:48 BP 118/66 11/26/23 10:48 Pulse Ox 99 11/26/23 10:48 Oxygen Delivery Method Room Air 11/26/23 10:48 BMI result Body Mass Index 17.6 Const General: cooperative, healthy appearing and no acute distress HEENT Head: Yes normal to inspection Ears: hearing grossly normal bilaterally, TM's normal bilaterally, no periauricular adenopathy and external ear abnormal (erythema, warmth, swelling pinna and posterior to ear, no lesion/drainage) auricular tenderness (erythema, ) on the left Face and sinus: Yes normal facial exam Eyes General: appearance normal, both eyes and all related structures Neck Neck: Yes no lymphadenopathy Resp Effort & Inspection: normal respiratory effort Extrem General: Yes capillary refill normal and Yes no clubbing, cyanosis or edema Psych Appearance: grossly normal Mental Status: mental status grossly normal Assessment & Plan Assessment & Plan (1) Cellulitis of left ear: Code(s): H60.12 - Cellulitis of left external ear Plan: I am going to start her on Cephalexin 7 days. We reviewed indications, use, possible s/e of this. I also advised Ibuprofen/Tylenol over the next several days prn pain/inflammation. Also advised cold compresses to ear. If she does not improve with treatment, or if she develops any worsening symptoms, she should return to the [facility] for further evaluation. She agrees to plan. Medications: New cephalexin Take 4 times a day for 7 days. 500 mg PO TID 7 days 21 caps 0RF H60.12 - Cellulitis of left external ear Coding Level of Care Code Est Pt Level 4 (02617) Diagnoses Cellulitis of left ear H60.12
== END 2023-11-26 11:25 | disposition home or self-care (01) ==
PROVIDERS: PCP Nurse Practitioner Family; Visit Provider Nurse Practitioner Family
DX: H60.12 Cellulitis of left external ear (principal)
CPT/HCPCS: 99214

== ENCOUNTER 2023-12-24 09:07 | Outpatient (AMB) | payer OTHER, SELFPAY ==
[2023-12-24 09:11] VITALS: BP 108/68; BMI 17.3
--- NOTE | 2023-12-24 09:11 | MHC.OFFVIS ---
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 Hide Inspector Required: No Information Interpreted: non-clinical & clinical Outside Sales Engineer: Outside Sales Engineer Present (Aidyn) Allergies cephalexin Allergy (Intermediate, Verified 12/24/23 09:12) Hives Seasonal Allergies Allergy (Intermediate, Verified 12/24/23 09:12) Stuffy Nose avocados Allergy (Mild, Uncoded 12/24/23 09:13) Hives Medication List - Last Reconciled 12/24/23 by Meghann Dawson CNM cholecalciferol (vitamin D3) 25 mcg PO DAILY 90 days doxycycline hyclate 100 mg PO BID 7 days drospirenone-ethinyl estradiol 3-0.03 mg (Kacey (28)) 1 tab PO DAILY hydroxyzine HCl 25 mg PO TID PRN 90 days sertraline 25 mg PO DAILY 90 days Is last menstrual period known: Yes Last menstrual period: 12/05/23 Post menopausal: No HPI 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 She is certain about monogamous behavior. Discussed that I will recommend testing for STIs with her 1st exam Pap smear regardless. Today she would like renewal of her control pills and I will renew them for the year and see her to reschedule her annual exam sometime this summer. Reviewed her life and school and stressors and control pill use and side effects. She did have an early to week. But on looking back she had missed a couple of pills she had been on antibiotics for removal of her wisdom teeth and she was stressed out with studying for finals so there was a lot going on she says she used condoms when she did have sex. We reviewed backup reviewed normal use of the control pills and how they work review life and her stressors and school and she is going to be working and playing soccer during the summer so she is feeling good and healthy we will see her in a couple of months and do her complete annual 1st Pap smear and testing for STIs then. [facility] Medical History Vitamin D deficiency Depression Acne Surgical History H/O wisdom tooth extraction No pertinent past surgical history Family History Maternal Grandfather Bone cancer Lung cancer Maternal Grandmother Breast cancer Other Mental health disorder Social History Household Members: Family Housing: House Housing Other:: multifamily Alcohol intake: never Patient Tobacco Use Status: Never used Tobacco e-Cigarette/Vaping Use: Never Used service: No Current occupational status: student Current occupational exposures/hazards: No Cognitive needs: No Hearing needs: No Vision needs: No Female Reproductive History Menstrual Age of Menarche: 15 Duration of menses: 3-5 days Date of last menstrual period: 12/05/23 control method: pills Total pregnancies: 0 Physical Exam Vital Signs: Last Vital Signs BP 108/68 12/24/23 09:11 BMI result Body Mass Index 17.3 Const Other: Exam and pelvic exam and 1st Pap fall deferred today patient choice she will be due for her 1st Pap after birthday in January so we will do it this summer at some dates at her convenience I described what would done. 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 She is certain about monogamous behavior. Discussed that I will recommend testing for STIs with her 1st exam Pap smear regardless. Today she would like renewal of her control pills and I will renew them for the year and see her to reschedule her annual exam sometime this summer. Reviewed her life and school and stressors and control pill use and side effects. She did have an early to week. But on looking back she had missed a couple of pills she had been on antibiotics for removal of her wisdom teeth and she was stressed out with studying for finals so there was a lot going on she says she used condoms when she did have sex. We reviewed backup reviewed normal use of the control pills and how they work review life and her stressors and school and she is going to be working and playing soccer during the summer so she is feeling good and healthy we will see her in a couple of months and do her complete annual 1st Pap smear and testing for STIs then. Medications: Refilled drospirenone-ethinyl estradiol 3-0.03 mg (Kacey (28)) 1 tab PO DAILY 84 tabs 4RF Coding Level of Care Code Est Pt Level 3 (82730) Diagnoses Counseling for control, oral contraceptives Z30.09
== END 2023-12-24 09:42 | disposition home or self-care (01) ==
LOC: HO.HWS 09:07
PROVIDERS: PCP Nurse Practitioner Family; Visit Provider Advanced Practice Midwife
DX: Z30.09 Encounter for other general counseling and advice on contraception (principal)
CPT/HCPCS: 99213

== ENCOUNTER → 2023-12-24 09:07 | Outpatient (BNVA) | payer OTHER, SELFPAY | PROVIDERS: PCP Nurse Practitioner Family; Visit Provider Advanced Practice Midwife ==

== ENCOUNTER 2024-07-05 14:43 | Outpatient (AMB) | payer OTHER, SELFPAY ==
--- NOTE | 2024-07-05 14:45 | A.OFFPC_ITS ---
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 Is last menstrual period known: Yes Last menstrual period: 06/19/24 Post menopausal: No Patient : No Allergies cephalexin Allergy (Intermediate, Verified 07/05/24 14:49) Hives Seasonal Allergies Allergy (Intermediate, Verified 07/05/24 14:49) Stuffy Nose avocados Allergy (Mild, Uncoded 12/24/23 09:13) Hives Tobacco use date assessed: 07/05/24 Dental Screening Dental Screen Date: 07/05/24 Did you have a dental visit in the last 12 months?: Yes Did you have a dental problem in the last 6 months where you did not have access to dental care?: No Was dental information given to patient?: Patient has dentist HPI HPI Comments History of Present Illness Details The patient is a 19-year-old female presenting with potential gluten intolerance. She reports experiencing significant bloating, stomach pain, and facial breakouts upon gluten consumption, which started approximately 1-2 months ago. During weekdays, she maintains a gluten-free diet, with symptoms arising predominantly on weekends when she consumes gluten to test her reaction. Symptoms intensify after gluten intake, including nausea and a loss of appetite. She has self-initiated avoidance of gluten since her last symptomatic episode, which occurred two weekends ago during . In addition to these symptoms, the patient has a history of anxiety and depression, which are currently well-controlled. She stopped taking sertraline and hydroxyzine and feels stable following commencement of therapy approximately 3-4 months ago, complemented by increased physical activity. FOR[facility]LY [facility], [facility] Medical History Vitamin D deficiency Depression Acne Surgical History H/O wisdom tooth extraction No pertinent past surgical history Family History Maternal Grandfather Bone cancer Lung cancer Maternal Grandmother Breast cancer Other Mental health disorder Social History Household Members: Family Housing: House Housing Other:: multifamily Alcohol intake: never Patient Tobacco Use Status: Never used Tobacco e-Cigarette/Vaping Use: Never Used service: No Current occupational status: student Current occupational exposures/hazards: No Cognitive needs: No Hearing needs: No Vision needs: No Female Reproductive History Menstrual Age of Menarche: 15 Date of last menstrual period: 06/19/24 Questionnaire PHQ-9 Over the last 2 weeks, how often have you been bothered by any of the following problems? 1. Little interest or pleasure in doing things: not at all 2. Feeling down, depressed, or hopeless: not at all 3. Trouble falling or staying asleep, or sleeping too much: several days 4. Feeling tired or having little energy: not at all 5. Poor appetite or overeating: not at all 6. Feeling bad about yourself - or that you are a failure or have let yourself or your family down: not at all 7. Trouble concentrating on things, such as reading the newspaper or watching television: nearly every day 8. Moving or speaking so slowly that other people could have noticed. Or the opposite - being so fidgety or restless that you have been moving around a lot more than usual: not at all 9. Thoughts that you would be better off or of hurting yourself in some way: not at all Total score: 4 Depression Screening Interpretation: Negative Depression Screening Done: Yes Source: Developed by Drs. Bravo White, Gloria Pringle, Panfilo Velásquez and colleagues, with an educational tony from [employer]. Thrive Questionnaire Date Thrive assessed: 07/04/24 I am a: Patient What is your living situation today?: I have a steady place to live Within the past 12 months, did the food you bought not last and you didn't have the money to get more?: Never true Within the past 12 months, did you worry whether your food would run out before you got money to buy more?: Never true Do you have trouble paying for medicines?: No Do you have trouble getting transportation to medical appointments?: No Do you have trouble paying your heating and electricity bill?: No Do you have trouble taking care of your child, family member or friend?: No Do you have trouble with day-to-day activities such as bathing, preparing meals, shopping, managing finances, etc.?: No Are you currently unemployed and looking for a job?: Yes Are you interested in more education?: No Please select the resources that you would like help with: None Currently or been in a relationship where the following occur: No concerns reported THRIVE Score: 0 AUDIT C Alcohol Use Questionnaire (AUDIT-C) 1. How often do you have a drink containing alcohol?: 2-4 times a month 2. How many drinks containing alcohol do you have on a typical day when you are drinking?: 1 or 2 3. How often do you have six or more drinks on one occasion?: Never Total Score: 2 LZI-7 AMB Questionnaire LIZ-7 Date LIZ - 7 assessed: 10/25/23 Feeling nervous, anxious, or on edge: 1 = Several days Not being able to stop or control worryin = Several days Worrying too much about different things: 1 = Several days Trouble relaxin = Several days Being so restless that it is hard to sit still: 1 = Several days Becoming easily annoyed or irritable: 1 = Several days Feeling afraid as if something awful might happen: 1 = Several days Total LIZ-7 score (0-4 normal; 5-9 mild; 10-14 moderate; 15-21 severe): 7 Source: Developed by Drs. Bravo White, Gloria Pringle, Panfilo Velásquez and colleagues, with an educational tony from [employer]. Review of Systems Const Details: Const Denies chills, Denies fatigue, Denies fever(s), Denies headache(s) and Denies weakness ENT Denies dizziness and Denies headache(s) Card Denies chest pain, Denies lightheadedness, Denies dyspnea and Denies other (Palpitations) Resp Denies cough, Denies dyspnea, Denies wheezing and Denies other ( shortness of breath) GI Denies abdominal pain, Denies melena, Denies hematochezia, Denies change in bowel habits, Denies dyspepsia and Denies nausea Denies hematuria and Denies dysuria Musc Denies abnormal gait, Denies myalgias, Denies arthralgias, Denies numbness and Denies tingling Skin/Breast Denies rash, Denies unusual bruising and Denies wounds Neuro Denies abnormal gait, Denies dizziness, Denies headache(s), Denies memory loss, Denies numbness, Denies Sensory deficit (Neuro), Denies tingling and Denies weakness Psych Denies anxiety, Denies depression, Denies memory loss Endo Denies cold intolerance, Denies fatigue, Denies heat intolerance, Denies polydipsia and Denies polyuria Aller/Immun Denies wheezing Physical exam (Primary Care) Vital Signs: Last Vital Signs Temp 98.6 F 07/05/24 14:51 Pulse 73 07/05/24 14:51 Resp 16 07/05/24 14:51 BP 113/63 07/05/24 14:51 Pulse Ox 100 07/05/24 14:51 Oxygen Delivery Method Room Air 07/05/24 14:51 BMI result Body Mass Index 17.8 Tobacco/Smoking Status: Tobacco use Status Tobacco use date assessed 07/05/24 07/05/24 14:54 Patient Tobacco Use Status Never used Tobacco 07/05/24 14:47 e-Cigarette/Vaping Use Never Used 07/05/24 14:47 PHQ-9: PHQ-9 Score PHQ-9: Total score 4 07/05/24 14:47 Depression Screening Interpretation: Negative Thrive Assessment: Date of Thrive Assessment Date Thrive assessed 07/04/24 07/05/24 14:47 Currently or been in a relationship where the following occur: No concerns reported Const Other: General: no acute distress and well developed Nutritional Appearance: well nourished Orientation/consciousness: patient oriented x3 HENMT Head: Yes normocephalic and Yes atraumatic Eyes General: appearance normal, both eyes and all related structures Pupils: Equal, round and reactive pupils present EOM: EOMs intact bilaterally Resp Effort & Inspection: normal respiratory effort Auscultation: clear to auscultation bilaterally Cardio Rate: regular rate Rhythm: regular rhythm Heart sounds: S1 normal heart sound present, S2 normal heart sound present, no gallops, no murmurs and no rubs GI Palpation (GI): No Abdominal aortic bruit present, Soft to palpation, nontender, No hepatosplenomegaly present and No Rebound tenderness present Auscultation: normal bowel sounds General: Yes no CVA tenderness Back/Spine/Pelvis Back: no CVA tenderness Cervical Spine: cervical ROM normal and No Cervical spine tenderness Thoracic/Lumbar Spine: thoraco-lumbar ROM normal, No pain with thoraco-lumbar ROM, No thoracic spinal tenderness and No lumbar spinal tenderness Extrem General: Yes normal to inspection, No edema and No calf tenderness Skin General: warm and dry. Normal skin color. Normal skin turgor Neuro General: patient oriented x3, gait normal and no focal neuro deficit Cranial nerves: Yes Equal, round and reactive pupils present Cognition (Neuro): normal cognition Gait exam (Neuro): Normal gait present Sensory Exam: No Sensory deficit (Neuro) Psych Appearance: grossly normal Affect: normal affect Attitude: cooperative Thought process: Normal thought process present Coding Level of Care Code Est Pt Level 3 (06563) Diagnoses Gluten intolerance K90.41 Anxiety F41.9 Depression, unspecified depression type F32.A Depression Type: unspecified Laboratory tests ordered as part of a complete physical exam (CPE) Z00. Assessment & Plan Assessment & Plan (1) Gluten intolerance: Code(s): K90.41 - Non-celiac gluten sensitivity Category: Medical Plan: Transglutaminase antibody testing scheduled. Instructed the patient to reintr oduce gluten into her diet for accurate results within the next two weeks. (2) Anxiety: Code(s): F41.9 - Anxiety disorder, unspecified Category: Medical Plan: Observed to be under control. No current medication required; continuation of therapy and exercise advised. (3) Depression: Code(s): F32.A - Depression, unspecified Category: Medical Qualifiers: Depression Type: unspecified Qualified Code(s): F32.A - Depression, unspecified Plan: Plan as above. (4) Laboratory tests ordered as part of a complete physical exam (CPE): Code(s): Z00.00 - Encounter for general adult medical examination without abnormal findings Category: Medical Plan: Scheduled comprehensive panel labs and advised the patient on fasting prior to testing. Next physical examination to be scheduled. Plan We discussed the patient's symptoms consistent with possible gluten intolerance, notably bloating, nausea, and facial acne after gluten intake. I recommended testing for transglutaminase antibodies in two weeks and advised dietary reintroduction of gluten to ensure an accurate assessment. The patient reported remission of her anxiety and depression symptoms without medications, attributed to therapy and increased physical activities. I emphasized the importance of continuing therapy sessions and maintaining regular exercise. Additionally, I outlined the need for routine health maintenance through scheduled comprehensive panel labs before her upcoming physical. Orders: Orders Complete Blood Count Auto Diff 4 Months Z00.00 - Encounter for general adult medical examination without abnormal findings Lipid Panel 4 Months Z00.00 - Encounter for general adult medical examination without abnormal findings TSH reflex Free T4 4 Months Z00.00 - Encounter for general adult medical examination without abnormal findings UA CC w/rflx Micro + Cult 4 Months Z00.00 - Encounter for general adult medical examination without abnormal findings Transglutaminase IgA Today K90.41 - Non-celiac gluten sensitivity Comprehensive [place]. Panel Fast 4 Months Z00.00 - Encounter for general adult medical examination without abnormal findings Patient Instructions: - Reintroduce gluten into the diet over the next two weeks before the transglutaminase antibody test. - Continue attending therapy sessions and gym activities regularly. - Schedule a routine physical examination for four months from now. - Fast for 10-12 hours prior to comprehensive panel labs; water is permitted. - Return for further evaluation if symptoms persist or worsen. Patient was informed and verbally consented to the use of an ambient scribe for clinic note documentation during this visit.
[2024-07-05 14:51] VITALS: BP 113/63; PULSE 73; RESP 16; TEMP 37; O2SAT 100; BMI 17.8
== END 2024-07-05 15:13 | disposition home or self-care (01) ==
PROVIDERS: PCP Nurse Practitioner Family; Visit Provider Nurse Practitioner Family
DX: K90.41 Non-celiac gluten sensitivity (principal); F41.9 Anxiety disorder, unspecified; F32.A Depression, unspecified; Z00.00 Encounter for general adult medical examination without abnormal findings

== ENCOUNTER → 2024-07-05 14:43 | Outpatient (BNVA) | payer OTHER, SELFPAY | PROVIDERS: PCP Nurse Practitioner Family; Visit Provider Nurse Practitioner Family ==

== ENCOUNTER 2024-07-25 11:15 | Outpatient (REF) | payer OTHER, SELFPAY ==
[2024-07-27 20:13] LABS: Transglutaminase IgA <1.0 U/mL
== END 2024-07-25 11:16 | disposition home or self-care (01) ==
LOC: HO.HMGCLDS 11:15
PROVIDERS: PCP Nurse Practitioner Family; Visit Provider Nurse Practitioner Family
DX: K90.41 Non-celiac gluten sensitivity (principal)
CPT/HCPCS: 36415; 86364

== ENCOUNTER 2024-08-23 08:37 | Outpatient (AMB) | payer OTHER, SELFPAY ==
--- NOTE | 2024-08-23 09:09 | MHC.OFFWIV ---
Intake Vital Signs 08/23/24 09:11 Height 5 ft 6 in Weight 110 lb BMI 17.8 BP 110/74 Blood Pressure Location Lt brachial Position Sitting Pulse 91 Pulse Source Pulse Oximeter Pulse Oximetry (%) 99 Oxygen Delivery Method Room Air Intake Visit Reasons: EP Kidney stones not passing, vomiting blood? Intake Note: Patient here for kidney stones that have been present since June, she states she has been trying to stay hydrated in hopes that they would pass but have not and this morning she woke up vomiting blood. Patient Tobacco Use Status: Never used Tobacco Allergies cephalexin Allergy (Intermediate, Verified 08/23/24 09:12) Hives Seasonal Allergies Allergy (Intermediate, Verified 08/23/24 09:12) Stuffy Nose avocados Allergy (Mild, Uncoded 08/23/24 09:12) Hives Do you need a note to return to daycare/school/sports/work: Yes HPI HPI Comments History of Present Illness Details She presents to office with vomit complaint 07/18/25 she was found to have a 4mm stone on R side She said it has not passed yet She said severe pain last night Used Ibuprofen She had 3-4 episodes of vomiting this am Said this am she noticed small amount of blood; said spread out approx a quarter sized She tried to eat something but vomited it up She said + chills without fever Pt said last night urinated okay but some pain with urination + small alount but frequency associated + slight dysuria, minimal. She is on menstrual cycle Pain level currently is 6/10, wax and waning shooting pain She said she was unable to be seen by PCP for kidney stone after seen in ER (Aug 28 appointment) FORMERLY [facility] Medical History Vitamin D deficiency Depression Acne Surgical History H/O wisdom tooth extraction No pertinent past surgical history Family History Maternal Grandfather Bone cancer Lung cancer Maternal Grandmother Breast cancer Other Mental health disorder Social History Household Members: Family Housing: House Housing Other:: multifamily Alcohol intake: never Patient Tobacco Use Status: Never used Tobacco e-Cigarette/Vaping Use: Never Used service: No Current occupational status: student Current occupational exposures/hazards: No Cognitive needs: No Hearing needs: No Vision needs: No Female Reproductive History Menstrual Age of Menarche: 15 Review of Systems Const Reports chills and Denies fever(s) Card Denies chest pain and Denies dyspnea Resp Denies dyspnea GI Reports abdominal pain, Denies diarrhea, Reports nausea, Reports vomiting and Reports hematemesis Reports menorrhagia (currently menstruating), Reports dysuria and Reports urinary urgency Musc Reports back pain Skin/Breast Denies rash (no flank vesicular rash) Physical Exam Vital Signs: Last Vital Signs Pulse 91 08/23/24 09:11 BP 110/74 08/23/24 09:11 Pulse Ox 99 08/23/24 09:11 Oxygen Delivery Method Room Air 08/23/24 09:11 BMI result Body Mass Index 17.8 General: Non-toxic, NAD. Speaking full sentences. Skin: Warm dry throughout HENT: Bilateral canals clear. TM non-erythematous, non-bulging. No TM perforation or hemotympanum noted. Respiratory: CTA bilaterally. No wheezes, rales or rhonchi Cardiac: RRR. No murmur Abdomen: BS present x 4. No distension or striae. + TTP R flank/RLQ. + R CVAT Neurology: Alert. No aphasia or facial droop. Gait without abnormality Psych: Good mood and affect Assessment & Plan Assessment & Plan (1) Flank pain: Code(s): R10.9 - Unspecified abdominal pain Plan: Patient seen and evaluated. Non-toxic appearing with stable vital signs Discussed u/a and needed but also need further imaging for ? onset of pain Pt mother to bring to ER Expect given to [facility] Patient gave verbal understanding and had no additional questions or concerns at time of discharge All questions answered Coding Level of Care Code Est Pt Level 4 (02678) Diagnoses Flank pain R10.9
[2024-08-23 09:11] VITALS: BP 110/74; PULSE 91; O2SAT 99; BMI 17.8
== END 2024-08-23 09:25 | disposition home or self-care (01) ==
PROVIDERS: PCP Nurse Practitioner Family; Visit Provider Physician Assistant
DX: R10.9 Unspecified abdominal pain (principal)

== ENCOUNTER 2024-08-23 09:51 | Emergency (ER) | payer OTHER, SELFPAY ==
--- NOTE | ~2024-08-23 | CT_ITS ---
EXAMINATION: CT ABDOMEN AND PELVIS WITHOUT CONTRAST CLINICAL INFORMATION: Flank pain. Possible kidney stones. COMPARISON: None available. TECHNIQUE: Multidetector volumetric imaging was performed from the superior aspect of the liver through the pubic symphysis. Sagittal and coronal reformatted images were obtained on the technologist's workstation. This CT examination was performed using dose optimization techniques as appropriate, variously including the following: *Automated exposure control *Adjustment of mA and/or kV according to patient size (this includes techniques or standardized protocols for targeted exams where dose is matched to indication/reason for exam; i.e. extremities or head) *Use of iterative reconstruction technique DLP: 293 mGy centimeters. FINDINGS: Inadequate evaluation of the intra-abdominal organs and vascular structures due to lack of IV contrast. LUNG BASES: No acute airspace disease, included lungs. LIVER, GALLBLADDER, AND BILIARY TREE: Liver measures 15 cm. Gallbladder is contracted. No pericholecystic fluid collection or gallbladder wall thickening. No intrahepatic or extrahepatic biliary ductal dilatation. PANCREAS: No peripancreatic fluid collections. No main pancreatic ductal dilatation. SPLEEN: 11 cm. ADRENAL GLANDS: No nodular lesions. KIDNEYS AND URETERS: Right kidney: 3 mm calculus at the right vesicoureteral junction/posterior right bladder lumen. Moderate to severe hydronephrosis. There are a few scattered less than 1 mm calculi throughout the pelvicalyceal system. Left kidney: No hydronephrosis. No nephrolithiasis. 0.9 cm hypodensity in the upper pole. Questionable 0.7 cm hypodensity in the lower pole.. BLADDER: 3 mm calcification posterior right lumen/vesicoureteral junction. GASTROINTESTINAL TRACT: Appendix is normal. No intestinal obstruction pattern. No pneumatosis intestinalis. No pneumoperitoneum. No ascites. ABDOMINAL WALL: No gross hernias. LYMPH NODES: No lymphadenopathy. VASCULAR: No aneurysm, abdominal aorta. PELVIC VISCERA: There is a tampon in the vagina. OSSEOUS STRUCTURES: No acute fracture or listhesis in the axial skeleton. Bony pelvis is intact. CT/CT abdomen pelvis wo IV con IMPRESSION: 3 mm obstructing calculus at the right vesicoureteral junction resulting in moderate to severe hydronephrosis. Nephrolithiasis, right kidney. Cystic lesions, left kidney. Fleischner guidelines were followed. Electronically signed by: Daniel Burnham MD 08/23/2024 02:52 PM EST RP
[2024-08-23 10:37] VITALS: BP 113/81; PULSE 82; RESP 16; TEMP 36.6; O2SAT 100; BMI 17.6
--- NOTE | 2024-08-23 10:37 | ED_ITS ---
HPI - General Adult General Chief complaint: Abdominal Pain Stated complaint: Kidney Stone Time Seen by Provider: 08/23/24 15:17 Source: patient Mode of arrival: ambulatory Limitations: no limitations History of Present Illness HPI narrative: This is a 19-year-old woman with a past medical history of anxiety/depression, ADHD, nephrolithiasis, wisdom teeth removal who presents for evaluation of right flank pain. Patient states that she was seen at [facility] on [address] and diagnosed with a kidney stone. She states that it was 4 mm states that she passed this stone. She states that she was not given urology follow- up. She states that her father and several family members from her father's side of the family have had kidney stones. She states no abdominal surgical history. She states that she started having right-sided flank pain 1 day prior to presentation radiating towards her right lower quadrant. She states that she also had nausea and several episodes of vomiting. She reports noting blood- tinged vomit this morning she. She states mild nausea at this time. She states no chest pain or dyspnea. She States no trauma. She states no fevers or chills. She states no cough, congestion or hemoptysis. She states no dysuria or urinary frequency/urgency. She states taking Tylenol prior to arrival. Related Data Previous Rx's ?Medication ?Instructions ?Recorded cholecalciferol (vitamin D3) 25 25 mcg PO DAILY 90 days #90 tabs 10/09/22 mcg (1,000 unit) tablet drospirenone 3 mg-ethinyl 1 tab PO DAILY #84 tabs 12/24/23 estradiol 0.03 mg tablet (Kacey (28)) ondansetron 4 mg disintegrating 4 mg PO Q8H PRN nausea and 08/23/24 tablet vomiting #10 tabs Allergies Allergy/AdvReac Type Severity Reaction Status Date / Time cephalexin Allergy Intermediate Hives Verified 08/23/24 10:40 Seasonal Allergies Allergy Intermediate Stuffy Nose Verified 08/23/24 10:40 avocados Allergy Mild Hives Uncoded 08/23/24 09:12 Review of Systems 2 Review of Systems: ROS as per HPI PMF Past Medical History Medical History Vitamin D deficiency Depression Acne Surgical History H/O wisdom tooth extraction No pertinent past surgical history Family History Family History Maternal Grandfather Bone cancer Lung cancer Maternal Grandmother Breast cancer Other Mental health disorder Social History Social History Household Members: Family Housing: House Housing Other:: multifamily Alcohol intake: never Patient Tobacco Use Status: Never used Tobacco e-Cigarette/Vaping Use: Never Used Advance Directives: No Advance Directives Information Provided: No service: No Current occupational status: student Current occupational exposures/hazards: No Cognitive needs: No Hearing needs: No Vision needs: No Physical Exam ED Vital Signs: Vital Signs - 24 hr 08/23/24 10:37 Temperature 97.8 F Pulse Rate 82 Respiratory Rate 16 Blood Pressure 113/81 Pulse Oximetry 100 Oxygen Delivery Method Room Air BMI result Body Mass Index 17.6 Gen: NAD, AOx3 HEENT: NCAT, EOMI, normal conjunctiva CV: RRR Pulm: CTAB, no increased work of breathing GI: Soft, NTND, no rebound, guarding or rigidity, no bilateral CVAT Neuro: Grossly non focal Course Course Course Narrative: This is a Rapid Medical Examination (RME) performed by Hector Bloom PA-C in triage. Full HPI, ROS, assessment and treatment plan per primary provider in the Main ED. 19 yo female here w/ right flank pain radiating to left lower abd intermittently x 1 week and hematemsis x3 beginning this morning. diagnosed w/ right renal stone prior to . pain has been intermittent since this time. began vomiting specks: of blood this morning. no thinners. Plan: labs, UA, u preg, viral swabs Medications Administered Discontinued Medications Generic Name Dose Route Start Last Admin Trade Name Freq PRN Reason Stop Dose Admin Ketorolac Tromethamine 30 mg 08/23/24 15:31 08/23/24 16:05 Ketorolac Tromethamine 30 Mg/Ml Vial IM 08/23/24 15:32 30 mg ONCE ONE Administration Ondansetron HCl 4 mg 08/23/24 15:31 08/23/24 16:05 Ondansetron Odt 4 Mg Tab.Lianet SEPULVEDAU 08/23/24 15:32 4 mg ONCE ONE Administration Medical Decision Making Medical Decision Making [facility] Narrative: Differential diagnosis includes, but is not limited to renal colic, ureterolithiasis, nephrolithiasis, urinary tract infection. Patient is afebrile and hemodynamically stable on room air. Exam is benign and reassuring. I reviewed the patient's labs, urinalysis, viral testing and CT imaging of his below. Patient was treated supportively with 30 mg IM Toradol and 4 mg p.o. Zofran ODT. On re-examination, patient is well-appearing and in no acute distress. Patient states symptoms have resolved. She tolerates oral intake. There is no indication for further emergent evaluation in this otherwise well-appearing patient as above. ?Patient is provided written and verbal instructions, educational materials, prescription for Zofran, referral to Urology, recommendations for outpatient follow-up, strict return precautions and teach back is performed. ?Patient states understanding and agreement with plan of care. ?Patient is discharged home in stable and improved condition. Lab Data [facility] Lab Attestation statement: I reviewed the patient's lab results. I independently reviewed and interpreted the patient's labs, urine studies and viral testing as below. CBC is notable for leukocytosis with white blood cell count of 12.4 and otherwise CBC is unremarkable. Leukocytosis is likely reactive in nature and secondary to pain and vomiting. Hemoglobin stable at 12.5. Platelet within normal limits. Metabolic panel reassuring with no evidence of acute kidney injury, electrolyte abnormality, or elevated LFTs/lipase. Beta HCG negative. COVID-19, influenza and RSV negative. Urinalysis is unremarkable with no evidence of urinary tract infection. 08/23/24 11:39 08/23/24 11:39 Labs: Lab Results 08/23/24 08/23/24 Range/Units 11:39 16:07 WBC 12.4 H (4.8-10.8) X10*3/uL RBC 4.17 L (4.20-5.50) X10*6/uL Hgb 12.5 (12.0-16.0) g/dl Hct 34.3 L (37.0-47.0) % MCV 82.3 (80.0-98.0) fL MCH 30.0 (27.0-33.0) pg MCHC 36.4 H (31.0-35.0) g/dl RDW 11.6 (11.0-16.0) % Plt Count 304 (160-400) X10*3/uL MPV 8.4 L (9.4-12.3) fL Immature Gran % (Auto) 0.4 (0.0-0.4) % Neut % (Auto) 80.5 H (45-73) % Lymph % (Auto) 10.0 L (20-40) % [place] % (Auto) 8.2 (2-11) % Eos % (Auto) 0.7 (0-4) % Baso % (Auto) 0.2 (0-2) % Lymph # (Auto) 1.2 (1.2-4.9) X10*3/uL [place] # (Auto) 1.0 (0.1-1.2) X10*3/uL Eos # (Auto) 0.1 (0.0-0.4) X10*3/uL Baso # (Auto) 0.0 (0.0-0.2) X10*3/uL Abs Immat Gran (auto) 0.05 H (0.00-0.03) X10*3/uL Absolute Neuts (auto) 10.0 H (2.0-8.3) x10*3/uL Absolute Nucleated RBC 0.000 (0.0-0.012) X10*3/uL Nucleated RBC % (auto) 0.0 (0.0-0.2) /100WBC Sodium 136 (135-145) mmol/L Potassium 3.6 (3.3-5.1) mmol/L Chloride 104 (96-108) mmol/L Carbon Dioxide 23 (22-29) mmol/L Anion Gap 13 (12-20) BUN 14 (9-16) mg/dL Creatinine 0.97 (0.5-1.4) mg/dL Estim Creat Clear Calc 71.8 Estimated GFR > 60 Random Glucose 78 (60-115) mg/dL Calcium 8.9 (8.4-10.2) mg/dL Magnesium 2.0 (1.6-2.6) mg/dL Total Bilirubin 0.6 (0.0-1.0) mg/dL AST 20 (5-31) U/L ALT 11 (0-31) U/L Alkaline Phosphatase 59 (39-117) U/L Total Protein 7.6 (6.5-8.0) g/dL Albumin 4.1 (3.5-5.0) g/dL Lipase 30 (8-78) U/L Beta HCG, Quant < 2 mIU/mL Urine Color Yellow Urine Appearance Clear Urine pH 5.5 (5.0-9.0) Ur Specific [place] >= 1.030 H (1.005-1.025) Urine Protein Trace (Neg-Trace) mg/dL Urine Glucose (UA) Negative (Negative) mg/dL Urine Ketones >=160 (Negative) mg/dL Urine Blood Negative (Negative) Urine Nitrite Negative (Negative) Ur Leukocyte Esterase Negative (Negative) Urine Test NEGATIVE (NEGATIVE) Influenza Type A (PCR) NEGATIVE (Negative) Influenza Type B (PCR) NEGATIVE (Negative) RSV RNA Qual (PCR) NEGATIVE (Negative) SARS-CoV-2 RNA (RT-PCR) NEGATIVE (Negative) Independent Interpretation I performed an independent interpretation of an: CT Scan Interpretation: I independently reviewed and interpreted the patient's CT imaging, which demonstrates for right-sided distal ureter calculus with associated hydronephrosis. Radiology Impression Discussion of test interpretation with radiology: I have reviewed the radiologist's reading. Radiologist Impression: CT/CT abdomen pelvis wo IV con IMPRESSION: 3 mm obstructing calculus at the right vesicoureteral junction resulting in moderate to severe hydronephrosis. Nephrolithiasis, right kidney. Cystic lesions, left kidney. Fleischner guidelines were followed. Electronically signed by: Daniel Burnham MD 08/23/2024 02:52 PM [facility] Dictated By: Daniel George MD Signed By: <Electronically signed by Daniel Marcus MD in OV> 08/23/24 1454 Discharge Plan Discharge Clinical Impression: Ureterolithiasis Patient Disposition: Home, Self-Care Instructions: Ureteral Stones (ED) Additional Instructions: You were seen and evaluated in the emergency room. Your vital signs were reassuring. Your blood work and urine studies were reassuring as well. Your CT scan showed a right-sided 3 mm kidney stone. Please be sure to stay hydrated by drinking at least 8 cups of water every day. Please take 600 mg ibuprofen every 6 hours with food and water as needed for pain relief. You may take 1000 mg Tylenol every 8 hours as needed for additional pain relief. You were given a prescription for a nausea medicine. Please take as directed. Please follow up with the urology referral provided to you in the next 1-2 weeks. Please follow-up with your primary care doctor in the next 5-7 days. ? Please return to the emergency room if you develop any worsening symptoms or injuries. Prescriptions: New ondansetron 4 mg tablet,disintegrating 4 mg PO Q8H PRN (Reason: nausea and vomiting) Qty: 10 0RF No Action cholecalciferol (vitamin D3) 25 mcg (1,000 unit) tablet 25 mcg PO DAILY 90 Days Qty: 90 4RF drospirenone-ethinyl estradiol [Kacey (28)] 3-0.03 mg tablet 1 tab PO DAILY Qty: 84 4RF Referrals: [facility] [Provider Group] Print Language: Taiwanese
[2024-08-23 11:42] LABS: MANUAL DIFF FLAG NO
[2024-08-23 11:47] LABS: Basophils Percent Auto 0.2 % (0-2); Eosinophils Absolute Auto 0.1 X10*3/uL (0.0-0.4); Eosinophils Percent Auto 0.7 % (0-4); Hematocrit 34.3 % (37.0-47.0); Hemoglobin 12.5 g/dl (12.0-16.0); Imm Gran Abs Auto 0.05 X10*3/uL (0.00-0.03); Imm Gran Pct Auto 0.4 % (0.0-0.4); Lymphocytes Absolute Auto 1.2 X10*3/uL (1.2-4.9); Mean Corpuscular HGB Conc 36.4 g/dl (31.0-35.0); Mean Corpuscular Volume 82.3 fL (80.0-98.0); Mean Platelet Volume 8.4 fL (9.4-12.3); Monocytes Percent Auto 8.2 % (2-11); Neutrophils Percent Auto 80.5 % (45-73); Platelet Count 304 X10*3/uL (160-400); Red Blood Count 4.17 X10*6/uL (4.20-5.50); Red Cell Distribution Width 11.6 % (11.0-16.0); White Blood Count 12.4 X10*3/uL (4.8-10.8)
[2024-08-23 12:00] LABS: Alanine Aminotransferase 11 U/L (0-31); Albumin Level 4.1 g/dL (3.5-5.0); Alkaline Phosphatase 59 U/L (39-117); Anion Gap 13 (12-20); Aspartate Amino Transferase 20 U/L (5-31); Bilirubin Total 0.6 mg/dL (0.0-1.0); Blood Urea Nitrogen 14 mg/dL (9-16); Calcium 8.9 mg/dL (8.4-10.2); Carbon Dioxide 23 mmol/L (22-29); Chloride 104 mmol/L (96-108); Creatinine Clr Calc Pharmacy 71.8; Estimated Glomerular Filt Rate > 60; Glucose Random 78 mg/dL (60-115); Lipase 30 U/L (8-78); Potassium 3.6 mmol/L (3.3-5.1); Sodium 136 mmol/L (135-145); Total Protein 7.6 g/dL (6.5-8.0)
[2024-08-23 12:22] LABS: Influenza A PCR NEGATIVE (Negative); Influenza B PCR NEGATIVE (Negative); Resp Syncy Virus RNA Qual PCR NEGATIVE (Negative); SARS COV2 PCR INHOUSE NEGATIVE (Negative)
[2024-08-23 14:05] LABS: HCG Quantitative < 2 mIU/mL
[2024-08-23] MEDS: Ondansetron ODT 4 MG TAB.RAPDIS TRANSLINGU (16:05)
[2024-08-23] MEDS: Ketorolac Tromethamine 30 MG/ML VIAL IM (16:05)
[2024-08-23 16:33] LABS: Appearance Urine Clear; Color Urine Yellow; Glucose Urine UA Negative (Negative); Leukocyte Esterase Urine Negative (Negative); Nitrite Urine Negative (Negative); PH 5.5 (5.0-9.0); Specific Gravity - Urine >= 1.030 (1.005-1.025); Urine Blood Negative (Negative); Urine Ketones >=160 mg/dL (Negative); Urine Protein Trace mg/dL (Neg-Trace)
[2024-08-23 16:50] LABS: UPreg QC Valid YES; Urine Pregnancy NEGATIVE (NEGATIVE)
--- OUTSIDE RECORDS SUMMARY | 2024-08-23 17:26 | XMS_ITS | Clinical Summary ---
Author Organization [facility] Address [address] [place] [address] Care Team Providers Care Lean Sensei Name Role Phone Higinio Klein MD Primary Care Provider [phone] Medications No known medications Active Problems No known active problems Social History Tobacco Use Types Packs/Day Years Used Date Smoking Tobacco: Never Smokeless Tobacco: Never Sex and Gender Information Value Date Recorded Sex Assigned at Female 03/13/2022 3:17 PM EDT Gender Identity Female 03/13/2022 3:17 PM EDT Sexual Orientation Not on file Job Start Date Occupation Industry Not on file Not on file Not on file Last Filed Vital Signs Vital Sign Reading Time Taken Comments Blood Pressure - - Pulse - - Temperature - - Respiratory Rate - - Oxygen Saturation - - Inhaled Oxygen Concentration - - Weight 47.2 kg (104 lb) 03/13/2022 3:40 PM EDT Height 165.1 cm (5' 5 ) 03/13/2022 3:40 PM EDT Body Mass Index 17.31 03/13/2022 3:40 PM EDT Plan of Treatment Health Maintenance Due Date Last Done Comments Hepatitis B Vaccines (1 of 3 - 3-dose series) 2003 Hepatitis C Screening 2003 COVID-19 Vaccine (#1) 2003 Depression Screening 2015 Gonorrhea and Chlamydia Screening 02/01/2016 Preventative Health Evaluation 2021 DTap / Tdap / Td (1 - Tdap) 2022 Cervical Cancer Screening (P ap Smear) 02/01/2024 Influenza Vaccine (#1) 2024 Pneumococcal Vaccine Aged Out No long er eligible based on patient's age to complete this topic RSV Ped < 20 months Aged Out No longe r eligible based on patient's age to complete this topic Care Teams Lean Sensei Relationship Specialty Start Date End Date Higinio Klein MD [address] [place] [id number] PCP - General Family Medicine 03/13/22
[2024-08-23 17:58] VITALS: BP 113/72; PULSE 89; RESP 20; TEMP 36.1; O2SAT 100
== END 2024-08-23 17:59 | disposition home or self-care (01) ==
PROVIDERS: Physician Assistant Medical; Emergency Provider Emergency Medicine; PCP Nurse Practitioner Family
DX: N20.1 Calculus of ureter (principal); R10.2 Pelvic and perineal pain; R11.0 Nausea; Z79.899 Other long term (current) drug therapy; Z03.818 Encounter for observation for suspected exposure to other biological agents ruled out
CPT/HCPCS: 0241U; 36415; 74176; 80053; 81003; 81025; 83690; 83735; 84702; 85025; 99283; 99284; J1885

== ENCOUNTER → 2024-08-23 13:38 | Outpatient (BNV) | payer OTHER, SELFPAY | PROVIDERS: PCP Nurse Practitioner Family; Visit Provider Radiology Diagnostic Radiology | DX: N20.0 Calculus of kidney (principal); N28.1 Cyst of kidney, acquired | CPT/HCPCS: 74176 ==

== ENCOUNTER → 2024-09-01 13:05 | Outpatient (AMB) | payer OTHER, SELFPAY | END | disposition home or self-care (01) | PROVIDERS: PCP Nurse Practitioner Family; Visit Provider Nurse Practitioner Family ==

== ENCOUNTER → 2024-09-01 13:05 | Outpatient (BNVA) | payer OTHER, SELFPAY | PROVIDERS: PCP Nurse Practitioner Family; Visit Provider Nurse Practitioner Family ==

== ENCOUNTER 2024-10-10 11:22 | Outpatient (AMB) | payer OTHER, SELFPAY ==
--- NOTE | 2024-10-10 11:17 | A.OFFVIS_ITS ---
Intake Visit Reasons: kidney stone Intake Note: Patient is present for KIDENY STONE Urology Medication:NONE Antibiotic Allergy:CEPHALEXIN Blood Thinner:NONE Disability Coordinator Required: No Allergies cephalexin Allergy (Intermediate, Verified 10/10/24 11:26) Hives Seasonal Allergies Allergy (Intermediate, Verified 10/10/24 11:26) Stuffy Nose avocados Allergy (Mild, Uncoded 10/10/24 11:26) Hives Medication List - Last Reconciled 10/10/24 by Ayaan Truong MD cholecalciferol (vitamin D3) 25 mcg PO DAILY 90 days drospirenone-ethinyl estradiol 3-0.03 mg (Kacey (28)) 1 tab PO DAILY naproxen 500 mg PO BID ondansetron 4 mg PO Q8H PRN HPI Comments Details: 10/10/24--Tona is a 19-year-old female presenting with right flank pain secondary to urolithiasis. She initially experienced right flank pain on July 18, identified by imaging to have a 3 mm stone at the right ureterovesical junction. A later episode led to a July emergency room visit revealing the persistence of the stone, as well as punctate stones in right kidneys. She states she thought she passed a stone however over the weekend she had spasmodic flank pain episodes. Currently, she reports no ongoing pain but was concerned about potential persisting stones. I have discussed further evaluation with kidney and bladder ultrasound. I have discussed further evaluation with 24 hour urine collection. Results - Tests and Diagnostics: - CT Scan: 08/23/2024--3 mm stone in the right ureterovesical junction, punctate stones in right kidneys. PFSH Medical History Vitamin D deficiency Depression Acne Surgical History H/O wisdom tooth extraction No pertinent past surgical history Family History Maternal Grandfather Bone cancer Lung cancer Maternal Grandmother Breast cancer Other Mental health disorder Social History Household Members: Family Housing: House Housing Other:: multifamily Alcohol intake: never Patient Tobacco Use Status: Never used Tobacco e-Cigarette/Vaping Use: Never Used service: No Current occupational status: student Current occupational exposures/hazards: No Cognitive needs: No Hearing needs: No Vision needs: No Female Reproductive History Menstrual Age of Menarche: 15 Review of Systems Const All systems reviewed & are unremarkable except as noted in HPI and below Reports no additional complaints Eyes Reports no additional complaints ENT Reports no additional complaints Card Reports no additional complaints Resp Reports no additional complaints GI Reports no additional complaints Reports as per HPI Musc Reports no additional complaints Skin/Breast Reports system reviewed and no additional complaints, except as documented Neuro Reports no additional complaints Psych Reports no additional complaints Endo Reports no additional complaints Jonnathan/Lymph Reports no additional complaints Aller/Immun Reports no additional complaints Physical Exam Const General: cooperative, healthy appearing and no acute distress Orientation/consciousness: patient oriented x3 HEENT Head: Yes normal to inspection, Yes normocephalic and Yes atraumatic Eyes Conjunctivae: conjunctivae normal Neck Neck: Yes normal visual inspection and Yes trachea midline Chest Chest palpation & inspection: normal inspection of the chest Resp Effort & Inspection: normal respiratory effort GI Inspection: Yes normal to inspection Neuro General: patient oriented x3 Extrem General: No edema Psych Appearance: grossly normal Results AMB Urinalysis, Automated UA Leukoctes 0 Denae/uL Last Edit by ROSA Pierce on 10/10/24 11:34 UA Nitrite Negative Last Edit by ROSA Pierce on 10/10/24 11:34 UA Urobilinogen 3.5 mg/dL Last Edit by ROSA Pierce on 10/10/24 11:3 4 UA Protein 0 mg/dL Last Edit by ROSA Pierce on 10/10/24 11:34 UA pH 6.0 Last Edit by ROSA Pierce on 10/10/24 11:34 UA Blood 0 Kelechi/uL Last Edit by ROSA Pierce on 10/10/24 11:34 UA Specific [place] 1.015 Last Edit by ROSA Pierce on 10/10/24 11: 34 UA Ketone Negative Last Edit by ROSA Pierce on 10/10/24 11:34 UA Bilirubin 0 mg/dL Last Edit by ROSA Pierce on 10/10/24 11:34 UA Glucose 0 mg/dL Last Edit by ROSA Pierce on 10/10/24 11:34 Results Reviewed Results Reviewed: Date of Service: 08/23/24 EXAMINATION: CT ABDOMEN AND PELVIS WITHOUT CONTRAST CLINICAL INFORMATION: Flank pain. Possible kidney stones. COMPARISON: None available. TECHNIQUE: Multidetector volumetric imaging was performed from the superior aspect of the liver through the pubic symphysis. Sagittal and coronal reformatted images were obtained on the technologist's workstation. This CT examination was performed using dose optimization techniques as appropriate, variously including the following: *Automated exposure control *Adjustment of mA and/or kV according to patient size (this includes techniques or standardized protocols for targeted exams where dose is matched to indication/reason for exam; i.e. extremities or head) *Use of iterative reconstruction technique DLP: 293 mGy centimeters. FINDINGS: Inadequate evaluation of the intra-abdominal organs and vascular structures due to lack of IV contrast. LUNG BASES: No acute airspace disease, included lungs. LIVER, GALLBLADDER, AND BILIARY TREE: Liver measures 15 cm. Gallbladder is contracted. No pericholecystic fluid collection or gallbladder wall thickening. No intrahepatic or extrahepatic biliary ductal dilatation. PANCREAS: No peripancreatic fluid collections. No main pancreatic ductal dilatation. SPLEEN: 11 cm. ADRENAL GLANDS: No nodular lesions. KIDNEYS AND URETERS: Right kidney: 3 mm calculus at the right vesicoureteral junction/posterior right bladder lumen. Moderate to severe hydronephrosis. There are a few scattered less than 1 mm calculi throughout the pelvicalyceal system. Left kidney: No hydronephrosis. No nephrolithiasis. 0.9 cm hypodensity in the upper pole. Questionable 0.7 cm hypodensity in the lower pole.. BLADDER: 3 mm calcification posterior right lumen/vesicoureteral junction. GASTROINTESTINAL TRACT: Appendix is normal. No intestinal obstruction pattern. No pneumatosis intestinalis. No pneumoperitoneum. No ascites. ABDOMINAL WALL: No gross hernias. LYMPH NODES: No lymphadenopathy. VASCULAR: No aneurysm, abdominal aorta. PELVIC VISCERA: There is a tampon in the vagina. OSSEOUS STRUCTURES: No acute fracture or listhesis in the axial skeleton. Bony pelvis is intact. IMPRESSION: 3 mm obstructing calculus at the right vesicoureteral junction resulting in moderate to severe hydronephrosis. Nephrolithiasis, right kidney. Cystic lesions, left kidney. Assessment & Plan Assessment & Plan (1) Flank pain: Code(s): R10.9 - Unspecified abdominal pain Category: Medical (2) Right distal ureteral calculus: Code(s): N20.1 - Calculus of ureter Category: Medical Plan Patient Instructions - Increase fluid intake to 48-64 ounces daily, adding lemon or lemon-based beverages to reduce stone recurrence. - Be mindful of consuming high oxalate foods such as spinach, kale, tea, and choose alternative options. - Await an ultrasound scheduled. If you experience intense pain or other concerning symptoms before this, seek immediate medical attention. -24-hour urine collection after ultrasound pending stone passage for further dietary evaluation. Orders: Orders AMB Urinalysis Automated Today Z13.9 - Encounter for screening, unspecified US retroperitoneal comp Today N20.1 - Calculus of ureter, R10.9 - Unspecified abdominal pain Patient Instructions: The patient had an opportunity to ask questions regarding treatment plan. The patient expressed understanding and agreement with the above treatment plan. The patient is aware they should contact our office by phone for worsening of their current condition or the appearance of new symptoms. Compliance is encouraged with any medications and followup testing that is ordered. It is a privilege to be allowed the opportunity to participate in the urologic care of your patient. If you have any questions or concerns regarding treatment for the above conditions please do not hesitate to contact me. The office telephone contact is [phone]. This note is constructed in part using voice recognition software. While every effort has been made to ensure accuracy application release manager errors may have been included. Yours sincerely, Ayaan Truong MD Coding Level of Care Code New Pt Level 4 (59019) Diagnoses Flank pain R10.9 Right distal ureteral calculus N20.1
--- OUTSIDE RECORDS SUMMARY | 2024-10-10 13:52 | XMS_ITS | Clinical Summary ---
Author Organization [facility] Address [address] [place] [address] Care Team Providers Care Pot Fireman Name Role Phone Higinio Klein MD Primary Care Provider [phone] Medications No known medications Active Problems No [...] age to complete this topic Care Teams Pot Fireman Relationship Specialty Start Date End Date Higinio Klein MD [address] [place] [id number] PCP - General Family Medicine 03/13/22
== END 2024-10-10 11:52 | disposition home or self-care (01) ==
PROVIDERS: PCP Nurse Practitioner Family; Visit Provider Urology
DX: R10.9 Unspecified abdominal pain (principal); N20.1 Calculus of ureter; Z13.9 Encounter for screening, unspecified
CPT/HCPCS: 99204

== ENCOUNTER → 2024-10-10 11:22 | Outpatient (BNVA) | payer OTHER, SELFPAY | PROVIDERS: PCP Nurse Practitioner Family; Visit Provider Urology | DX: N20.1 Calculus of ureter (principal); R10.9 Unspecified abdominal pain | CPT/HCPCS: 81003 ==

== ENCOUNTER 2024-10-23 13:49 | Outpatient (REF) | payer OTHER, SELFPAY ==
--- NOTE | ~2024-10-23 | US_ITS ---
CLINICAL HISTORY: R10.9 - flank pain US kidneys and bladder Comparison: None Findings: Right kidney 11.4 cm length. No significant focal abnormality. Left kidney 10.9 cm length. No significant focal abnormality. No bilateral hydronephrosis. Normal bilateral renal echogenicity. The urinary bladder is unremarkable. Prevoid volume 593 mL. Post void volume 0 mL. Bilateral ureteral jets visualized. Impression: No significant abnormalities. This document has been electronically signed by: Rob George MD on 10/23/2024 20:36:12
--- OUTSIDE RECORDS SUMMARY | 2024-10-23 15:33 | XMS_ITS | Clinical Summary ---
Author Organization [facility] Address [address] [place] [address] Care Team Providers Care Saas Architect Name Role Phone Higinio Klein MD Primary Care Provider [phone] Medications No known medications Active Problems No [...] age to complete this topic Care Teams Saas Architect Relationship Specialty Start Date End Date Higinio Klein MD [address] [place] [id number] PCP - General Family Medicine 03/13/22
== END 2024-10-23 13:50 | disposition home or self-care (01) ==
LOC: HO.HMGCX 13:49
PROVIDERS: PCP Nurse Practitioner Family; Visit Provider Urology
DX: R10.9 Unspecified abdominal pain (principal); N20.1 Calculus of ureter
CPT/HCPCS: 76770

== ENCOUNTER → 2024-10-23 13:51 | Outpatient (BNV) | payer OTHER, SELFPAY | PROVIDERS: PCP Nurse Practitioner Family; Visit Provider Radiology Diagnostic Radiology | DX: R10.9 Unspecified abdominal pain (principal) | CPT/HCPCS: 76770 ==

== ENCOUNTER 2024-11-10 08:42 | Outpatient (AMB) | payer OTHER, SELFPAY ==
--- NOTE | 2024-11-10 04:49 | A.OFFVIS_ITS ---
Intake Visit Reasons: 4w/US Intake Note: Patient is present via telehealth for a 4 week follow up/US (reminded the pt to complete 24hr urine) Urology Medication:NONE Antibiotic Allergy:CEPHALEXIN Blood Thinner:NONE Bottle And Glass Inspector Required: No Allergies cephalexin Allergy (Intermediate, Verified 11/10/24 08:47) Hives Seasonal Allergies Allergy (Intermediate, Verified 11/10/24 08:47) Stuffy Nose avocados Allergy (Mild, Uncoded 10/10/24 11:26) Hives HPI Comments Details: 11/10/24--19-year-old female presenting with follow-up concerns regarding previous kidney stones. She is reassured as her latest ultrasound shows normal results, indicating the absence of current stones, and confirms she has previously passed the stone. The patient experienced an issue with the delivery of her 24-hour urine collection test, which was sent to the wrong address and thus not received. Plans were made to rectify this by reordering and resending the test to her verified address. This test aims to evaluate dietary and fluid intake factors to prevent future stone formation. Urinary Symptoms Review - No current urinary stones as confirmed by ultrasound - Previous kidney stone passed - Pending 24-hour urine collection test to evaluate diet and fluid intake, not yet received due to delivery error Results - Ultrasound-10/23/24: Normal results, no kidney stones present 10/10/24--Tona is a 19-year-old female presenting with right flank pain secondary to urolithiasis. She initially experienced right flank pain on July 18, identified by imaging to have a 3 mm stone at the right uretero vesical junction. A later episode led to a July emergency room visit revealing the persistence of the stone, as well as punctate stones in right kidneys. She states she thought she passed a stone however over the weekend she had spasmodic flank pain episodes. Currently, she reports no ongoing pain but was concerned about potential persisting stones. I have discussed further evaluation with kidney and bladder ultrasound. I have discussed further evaluation with 24 hour urine collection. Results - Tests and Diagnostics: - CT Scan: 08/23/2024--3 mm stone in the right ureterovesical junction, punctate stones in right kidneys. [facility] Medical History Vitamin D deficiency Depression Acne Surgical History H/O wisdom tooth extraction No pertinent past surgical history Family History Maternal Grandfather Bone cancer Lung cancer Maternal Grandmother Breast cancer Other Mental health disorder Social History Household Members: Family Housing: House Housing Other:: multifamily Alcohol intake: never Patient Tobacco Use Status: Never used Tobacco e-Cigarette/Vaping Use: Never Used service: No Current occupational status: student Current occupational exposures/hazards: No Cognitive needs: No Hearing needs: No Vision needs: No Female Reproductive History Menstrual Age of Menarche: 15 Review of Systems Const All systems reviewed & are unremarkable except as noted in HPI and below Reports no additional complaints Eyes Reports no additional complaints ENT Reports no additional complaints Card Reports no additional complaints Resp Reports no additional complaints GI Reports no additional complaints Reports as per HPI Musc Reports no additional complaints Skin/Breast Reports system reviewed and no additional complaints, except as documented Neuro Reports no additional complaints Psych Reports no additional complaints Endo Reports no additional complaints Jonnahtan/Lymph Reports no additional complaints Aller/Immun Reports no additional complaints Telehealth Telehealth Telehealth Platform: [employer] Location of provider rendering services: practice address Location of patient: address on file Patient Identification confirmed using: Name, : Yes Telehealth method: video Patient verbally consented to treatment: Yes Patient verbally consented to billing insurance company: Yes Patient informed of any privacy concerns related to visit: Yes Results Reviewed Results Reviewed: Date of Service: 10/23/24 CLINICAL HISTORY: R10.9 - flank pain US kidneys and bladder Comparison: None Findings: Right kidney 11.4 cm length. No significant focal abnormality. Left kidney 10.9 cm length. No significant focal abnormality. No bilateral hydronephrosis. Normal bilateral renal echogenicity. The urinary bladder is unremarkable. Prevoid volume 593 mL. Post void volume 0 mL. Bilateral ureteral jets visualized. Impression: No significant abnormalities. Date of Service: 08/23/24 EXAMINATION: CT ABDOMEN AND PELVIS WITHOUT CONTRAST CLINICAL INFORMATION: Flank pain. Possible kidney stones. COMPARISON: None available. TECHNIQUE: Multidetector volumetric imaging was performed from the superior aspect of the liver through the pubic symphysis. Sagittal and coronal reformatted images were obtained on the technologist's workstation. This CT examination was performed using dose optimization techniques as appropriate, variously including the following: *Automated exposure control *Adjustment of mA and/or kV according to patient size (this includes techniques or standardized protocols for targeted exams where dose is matched to indication/reason for exam; i.e. extremities or head) *Use of iterative reconstruction technique DLP: 293 mGy centimeters. FINDINGS: Inadequate evaluation of the intra-abdominal organs and vascular structures due to lack of IV contrast. LUNG BASES: No acute airspace disease, included lungs. LIVER, GALLBLADDER, AND BILIARY TREE: Liver measures 15 cm. Gallbladder is contracted. No pericholecystic fluid collection or gallbladder wall thickening. No intrahepatic or extrahepatic biliary ductal dilatation. PANCREAS: No peripancreatic fluid collections. No main pancreatic ductal dilatation. SPLEEN: 11 cm. ADRENAL GLANDS: No nodular lesions. KIDNEYS AND URETERS: Right kidney: 3 mm calculus at the right vesicoureteral junction/posterior right bladder lumen. Moderate to severe hydronephrosis. There are a few scattered less than 1 mm calculi throughout the pelvicalyceal system. Left kidney: No hydronephrosis. No nephrolithiasis. 0.9 cm hypodensity in the upper pole. Questionable 0.7 cm hypodensity in the lower pole.. BLADDER: 3 mm calcification posterior right lumen/vesicoureteral junction. GASTROINTESTINAL TRACT: Appendix is normal. No intestinal obstruction pattern. No pneumatosis intestinalis. No pneumoperitoneum. No ascites. ABDOMINAL WALL: No gross hernias. LYMPH NODES: No lymphadenopathy. VASCULAR: No aneurysm, abdominal aorta. PELVIC VISCERA: There is a tampon in the vagina. OSSEOUS STRUCTURES: No acute fracture or listhesis in the axial skeleton. Bony pelvis is intact. IMPRESSION: 3 mm obstructing calculus at the right vesicoureteral junction resulting in moderate to severe hydronephrosis. Nephrolithiasis, right kidney. Cystic lesions, left kidney. Assessment & Plan Assessment & Plan (1) Kidney stone: Code(s): N20.0 - Calculus of kidney Category: Medical (2) Calcium nephrolithiasis: Code(s): N20.0 - Calculus of kidney Category: Medical Plan Plan The patient?s latest ultrasound shows no evidence of kidney stones, indicating she has successfully passed the previous stone. For further prevention, a 24- hour urine collection test will be conducted to analyze her dietary and fluid intake measures. The test kit, initially not received, will be resent to the correct address. Arrangements for a subsequent virtual consultation are in place to review the test results and make necessary dietary adjustments. Patient Instructions: The patient had an opportunity to ask questions regarding treatment plan. The patient expressed understanding and agreement with the above treatment plan. The patient is aware they should contact our office by phone for worsening of their current condition or the appearance of new symptoms. Compliance is e ncouraged with any medications and followup testing that is ordered. It is a privilege to be allowed the opportunity to participate in the urologic care of your patient. If you have any questions or concerns regarding treatment for the above conditions please do not hesitate to contact me. The office telephone contact is [phone]. This note is constructed in part using voice recognition software. While every effort has been made to ensure accuracy wellness ambassador errors may have been included. Yours sincerely, Ayaan Truong MD Scribe Plan - Not visible on output: Patient was informed and verbally consented to the use of an ambient scribe for clinic note documentation during this visit. Coding Level of Care Code Tele Est Pt Level 4 (77153) Diagnoses Kidney stone N20.0 Calcium nephrolithiasis N20.0
--- OUTSIDE RECORDS SUMMARY | 2024-11-10 09:07 | XMS_ITS | Clinical Summary ---
Author Organization [facility] Address [address] [place] [address] Care Team Providers Care Staffing Manager Name Role Phone Higinio Klein MD Primary Care Provider [phone] Medications No known medications Active Problems No [...] age to complete this topic Care Teams Staffing Manager Relationship Specialty Start Date End Date Higinio Klein MD [address] [place] [id number] PCP - General Family Medicine 03/13/22
== END 2024-11-10 10:08 | disposition home or self-care (01) ==
LOC: HO.HUSH 08:42
PROVIDERS: PCP Nurse Practitioner Family; Visit Provider Urology
DX: N20.0 Calculus of kidney (principal)
CPT/HCPCS: 99214

== ENCOUNTER 2025-04-26 10:31 | Outpatient (REF) | payer OTHER, SELFPAY ==
[2025-04-27 08:18] LABS: Bacterial Vaginosis PCR NEGATIVE (Negative); Candida Group PCR NOT DETECTED (Not Detect); Candida glab krusei PCR NOT DETECTED (Not Detect); Trichomonas vaginalis PCR NOT DETECTED (Not Detect)
[2025-04-27 09:58] LABS: CT PCR NOT DETECTED (Not Detect.); NG PCR NOT DETECTED (Not Detect.)
== END 2025-04-26 10:32 | disposition home or self-care (01) ==
LOC: HO.LAB 10:31
PROVIDERS: PCP Nurse Practitioner Family; Visit Provider Advanced Practice Midwife
DX: Z01.419 Encounter for gynecological examination (general) (routine) without abnormal findings (principal); N89.8 Other specified noninflammatory disorders of vagina; Z20.2 Contact with and (suspected) exposure to infections with a predominantly sexual mode of transmission; Z30.09 Encounter for other general counseling and advice on contraception
CPT/HCPCS: 81515; 87491; 87591

== ENCOUNTER 2025-04-26 10:31 | Outpatient (AMB) | payer OTHER, SELFPAY ==
--- NOTE | 2025-04-26 10:28 | MHC.OFFVIS ---
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 Hook Up Driver: Hook Up Driver Present (Marilyn) Accompanied by: Self / Same As Patient Allergies cephalexin Allergy (Intermediate, Verified 04/26/25 10:55) Hives Seasonal Allergies Allergy (Intermediate, Verified 04/26/25 10:55) Stuffy Nose avocados Allergy (Mild, Uncoded 10/10/24 11:26) Hives Medication List - Last Reconciled 04/26/25 by Meghann Dawson CNM cholecalciferol (vitamin D3) 25 mcg PO DAILY 90 days drospirenone-ethinyl estradiol 3-0.03 mg (Kacey (28)) 1 tab PO DAILY HPI HPI TURBINE INSPECTOR annual exam: Details: 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 She has been on controls for least a couple of years and is doing well on them and likes them and does not have any negative side effects. She is sexually active with the same partner and has no real worries about STIs but does accept some screening along with her 1st pelvic but declines blood work that I did offer to her. 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 She plays soccer couple of times a week in an adult league. [facility] Medical History Vitamin D deficiency Depression Acne Surgical History H/O wisdom tooth extraction No pertinent past surgical history Family History Maternal Grandfather Bone cancer Lung cancer Maternal Grandmother Breast cancer Other Mental health disorder Social History Household Members: Family Housing: House Housing Other:: multifamily Alcohol intake: never Patient Tobacco Use Status: Never used Tobacco e-Cigarette/Vaping Use: Never Used service: No Current occupational status: student Current occupational exposures/hazards: No Cognitive needs: No Hearing needs: No Vision needs: No Female Reproductive History Menstrual Age of Menarche: 15 Duration of menses: 6-7 days Date of last menstrual period: 04/05/25 Total pregnancies: 0 Physical Exam Vital Signs: Last Vital Signs BP 102/66 04/26/25 10:46 BMI result Body Mass Index 18.9 Const General: healthy appearing, comfortable, no acute distress, well developed and alert Nutritional Appearance: average body habitus Orientation/consciousness: patient oriented x3 Limitations: no limitations HEENT Head: Yes normocephalic Neck Neck: Yes normal visual inspection Chest Chest palpation & inspection: normal inspection of the chest Breast/axilla inspection: normal inspection of the breasts and normal inspection of the axillae Breast/axilla palpation: normal palpation of the breasts and normal palpation of the axillae Resp Effort & Inspection: normal respiratory effort GI Inspection: Yes normal to inspection, No Abdominal wall edema and No distended Palpation (GI): Soft to palpation and nontender Other: External exam within normal limits vagina pink moist scant clear mucus cervix nulliparous pink smooth small mobile nontender uterus small anteverted mobile nontender adnexa nontender nonenlarged good tone with Kegel. General: Yes bladder normal to palpation External Female Exam: normal external appearance and normal appearance of the urethra Speculum Exam - Vagina: normal appearance of the vagina, normal palpation and normal vaginal discharge Speculum Exam - Cervix: normal appearance of the cervix, normal palpation and nontender Bimanual exam- vagina & uterus: normal bimanual exam, normal palpation, uterine size normal, bladder normal to palpation, consistency normal, normal palpation, uterine mobility normal, uterine shape normal, No Cervical tenderness present, non-tender and no cervical motion tenderness Bimanual Exam- Adnexa, other: normal adnexae, no masses, normal and No adnexal tenderness Neuro General: patient oriented x3 Assessment & Plan Assessment & Plan (1) Counseling for control, oral contraceptives: Code(s): Z30.09 - Encounter for other general counseling and advice on contraception Category: Medical (2) Well woman exam with routine gynecological exam: Code(s): Z01.419 - Encounter for gynecological examination (general) (routine) without abnormal findings Category: Medical (3) Screening for malignant neoplasm of cervix: Code(s): Z12.4 - Encounter for screening for malignant neoplasm of cervix Category: Medical (4) Encounter for screening examination for sexually transmitted disease: Code(s): Z11.3 - Encounter for screening for infections with a predominantly sexual mode of transmission Category: Medical Plan This note is constructed using voice recognition software. While every effort has been made to ensure accuracy, sql data analyst errors may have been included. -----Discussed in this visit the following: healthy balanced diet, regular and consistent exercise, getting recommended health screens, doing the best she can for her particular health concerns, kegel exercises, pap smear screening and followup recommendations, mammography screening and SBE, normal changes in cycles in her life stage--- I reviewed her use of the pills and their side effects including her cook candy periods and changes in cervical mucus. She is doing well on the pills I did send another refill. She is a nonsmoker. Discussed and offered testing for STIs she accepted the ones that were done with the vaginal exam declined blood work for now and we will consider for the future. 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 She is keeping active playing soccer twice a week. She reports in the past that she broke bones many times when she was little but not since 8th grade. Medications: Refilled drospirenone-ethinyl estradiol 3-0.03 mg (Kacey (28)) 1 tab PO DAILY 84 tabs 4RF Coding Level of Care Code Est Pt Prev Care 18-39y(69912) Diagnoses Counseling for control, oral contraceptives Z30.09 Well woman exam with routine gynecological exam Z01.419 Screening for malignant neoplasm of cervix Z12.4 Encounter for screening examination for sexually transmitted disease Z11.3
[2025-04-26 10:46] VITALS: BP 102/66; BMI 18.9
--- OUTSIDE RECORDS SUMMARY | 2025-04-26 12:16 | XMS_ITS | Clinical Summary ---
Author Organization [facility] Address [address] [place] [address] Care Team Providers Care Engine Cleaner Name Role Phone Higinio Klein MD Primary Care Provider [phone] Medications No known medications Active Problems No [...] (P ap Smear) 02/01/2024 Influenza Vaccine (#1) 2025 Pneumococcal Vaccine Aged Out No long er eligible based on patient's age to complete this topic RSV Ped < 20 months Aged Out No longe r eligible based on patient's age to complete this topic Care Teams Engine Cleaner Relationship Specialty Start Date End Date Higinio Klein MD [address] [place] [id number] PCP - General Family Medicine 03/13/22
== END 2025-04-26 12:23 | disposition home or self-care (01) ==
LOC: HO.HWSM 10:31
PROVIDERS: PCP Nurse Practitioner Family; Visit Provider Advanced Practice Midwife
DX: Z01.419 Encounter for gynecological examination (general) (routine) without abnormal findings (principal); Z11.3 Encounter for screening for infections with a predominantly sexual mode of transmission; Z30.09 Encounter for other general counseling and advice on contraception
CPT/HCPCS: 99395; 99459

== ENCOUNTER 2025-04-26 12:45 | Outpatient (REF) | payer OTHER, SELFPAY | END 2025-04-26 12:46 | disposition home or self-care (01) | LOC: HO.LNP 12:45 | PROVIDERS: Visit Provider Advanced Practice Midwife | DX: Z01.419 Encounter for gynecological examination (general) (routine) without abnormal findings (principal); N89.8 Other specified noninflammatory disorders of vagina | CPT/HCPCS: 88175 ==